=== PATIENT | female | born 1955 | race Hispanic/Latino ===

== ENCOUNTER 2019-09-09 11:47 | Inpatient (IN) | payer OTHER, MEDICARE ==
[~2019-09-09] VITALS: Ht 152.4 cm; Wt 88.3 kg
[~2019-09-09 11:47] MED LIST: ATOR10TA69 PO; CEPH500B PO; LEVO50TA11 PO; LOSA1TAB37 PO; NAPR-1023 PO; OMEGA 3 PO; PANT40TA54 PO; TYL3 PO; VITAMIN B PO; VITAMIN B12 PO
[2019-09-09] MEDS ORDERED: ONDANSETRON HCL 4 MG/2 ML VIAL ONE ×2 (12:30→16:24)
[2019-09-09] MEDS ORDERED: ACETAMINOPHEN EXTRA STRENGTH 500 MG TABLET ONE (12:31)
[2019-09-09 12:36] LABS: BASOPHILS % (AUTO) 0.2 % (0.0-5.0); HEMATOCRIT 44.3 % (36-48); LYMPHOCYTES % (AUTO) 21.3 % (21.0-51.0); MEAN CORPUSCULAR HEMOGLOBIN 29.8 pg (27.0-33.0); MEAN CORPUSCULAR HGB CONC 34.5 g/dL (32.0-36.0); MEAN CORPUSCULAR VOLUME 86.4 fL (79-99); PLATELET COUNT (AUTO) 178 K/uL (130-400); RED BLOOD CELL COUNT(AUTO) 5.13 MIL/uL (4.00-5.50); RED CELL DISTRIBUTION WIDTH 12.9 % (11.0-15.5); WHITE BLOOD COUNT (AUTO) 6.1 K/uL (4.8-10.8)
[2019-09-09 12:50] LABS: INR 1.07 (0.85-1.15); PARTIAL THROMBOPLASTIN TIME 32.2 SEC (26.3-35.5); PROTHROMBIN TIME 11.5 SEC (9.6-11.6)
[2019-09-09 12:52] LABS: CARBON DIOXIDE 29 mmol/L (21-32); CHLORIDE 98 mmol/L (101-111); CREATININE 1.1 mg/dL (0.5-1.5); GLOMERULAR FILTR. RATE CALC 53 mL/min (>60); GLUCOSE,RANDOM 121 mg/dL (70-105); POTASSIUM 3.6 mmol/L (3.5-5.1); SODIUM SERUM 134 mmol/L (136-145); UREA NITROGEN, BLOOD 18 mg/dL (7-18)
[2019-09-09 13:01] LABS: ALANINE AMINOTRANSFERASE 50 U/L (12-78); ALBUMIN 3.3 g/dL (3.5-5.0); ASPARTATE AMINOTRANSFERASE 59 U/L (10-37); BILIRUBIN,TOTAL 0.5 mg/dL (0.2-1.0); CREATINE KINASE, TOTAL 113 U/L (21-232); MYOGLOBIN 80 ng/mL (10-92); TOTAL PROTEIN, SERUM 7.8 g/dL (6.0-8.3); TROPONIN I < 0.04 ng/mL (0.00-0.06)
[2019-09-09 14:55] LABS: APPEARANCE,URINE SL CLOUDY (CLEAR); BILIRUBIN,URINE SMALL (NEGATIVE); COLOR,URINE YELLOW (YELLOW); GLUCOSE, URINE (UA) NEGATIVE (NEGATIVE); KETONES,URINE 5 mg/dL (NEGATIVE); LEUKOCYTE ESTERASE ,URINE SMALL (NEGATIVE); NITRATE,URINE NEGATIVE (NEGATIVE); OCCULT BLOOD,URINE TRACE-INTACT (NEGATIVE); PROTEIN,URINE 100 mg/dL (NEGATIVE); UROBILINOGEN,URINE >=8.0 mg/dL (0.2-1.0)
[2019-09-09 15:11] LABS: BACTERIA,URINE Few /HPF (None Seen); MUCUS,URINE Moderate LPF (None Seen); SQUAMOUS EPITHELIAL CELL,UR Moderate /HPF (0-2)
[2019-09-09 15:55] LABS: ABG BASE EXCESS 1.2 mmol/L (-2.0-3.0); ABG HCO3 24.3 mmol/L (21.0-28.0); ABG OXYGEN SATURATION 92.7 % (95.0-99.0); ABG PCO2 34 mmHg (32-45)
[2019-09-09] MEDS: FUROSEMIDE 10 MG/ML 2ML VIAL IV SCH (18:15)
[2019-09-09] MEDS ORDERED: LIDOCAINE HCL-MPF 1% 2ML VIAL IV PRN ×2 (18:15)
[2019-09-09] MEDS: DEXAMETHASONE SOD PHOSPHATE 4 MG/ML 1ML VIAL IVP SCH (18:15)
[2019-09-09] MEDS ORDERED: FUROSEMIDE 10 MG/ML 2ML VIAL ONE (18:25)
[2019-09-09] MEDS ORDERED: DEXAMETHASONE SOD PHOSPHATE 10MG/ML 1ML VIAL ONE (18:25)
[2019-09-09 20:03] LABS: ABG BASE EXCESS 2.5 mmol/L (-2.0-3.0); ABG HCO3 26.2 mmol/L (21.0-28.0); ABG OXYGEN SATURATION 91.9 % (95.0-99.0); ABG PCO2 38 mmHg (32-45)
[2019-09-09] MEDS: ENOXAPARIN SODIUM 60 MG/0.6 ML SQ SCH (21:00)
[2019-09-09] MEDS: ATORVASTATIN CALCIUM 10 MG TABLET PO SCH (21:00)
[2019-09-09] MEDS ORDERED: ATORVASTATIN CALCIUM 10 MG TABLET ONE (21:31)
[2019-09-09] MEDS ORDERED: ENOXAPARIN SODIUM 40 MG/0.4 ML SYRINGE SQ ONE (21:32)
[2019-09-10 05:16] LABS: ABG HCO3 25.9 mmol/L (21.0-28.0); ABG OXYGEN SATURATION 94.2 % (95.0-99.0); ABG PCO2 38 mmHg (32-45)
[2019-09-10] MEDS ORDERED: FUROSEMIDE 10 MG/ML 2ML VIAL ONE ×3 (06:14→22:55)
[2019-09-10] MEDS: FUROSEMIDE 10 MG/ML 2ML VIAL IV SCH ×2 (06:15→18:15)
[2019-09-10] MEDS: LEVOTHYROXINE 50 MCG TABLET PO SCH (06:30)
[2019-09-10 06:42] LABS: HEMATOCRIT 41.8 % (36-48); MEAN CORPUSCULAR VOLUME 85.5 fL (79-99); RED BLOOD CELL COUNT(AUTO) 4.89 MIL/uL (4.00-5.50); WHITE BLOOD COUNT (AUTO) 5.2 K/uL (4.8-10.8)
[2019-09-10 06:54] LABS: INR 1.08 (0.85-1.15); PARTIAL THROMBOPLASTIN TIME 34.1 SEC (26.3-35.5); PROTHROMBIN TIME 11.6 SEC (9.6-11.6)
[2019-09-10 07:28] LABS: CREATININE 0.9 mg/dL (0.5-1.5); CRP QUANTITATIVE 174.8 mg/L (0.00-9.0); PHOSPHORUS 3.2 mg/dL (2.5-4.9); POTASSIUM 3.5 mmol/L (3.5-5.1); THYROID STIMULATING HORMONE 0.36 uIU/mL (0.36-3.74)
[2019-09-10] MEDS ORDERED: ENOXAPARIN SODIUM 60 MG/0.6 ML SQ ONE ×2 (08:25→22:54)
[2019-09-10] MEDS ORDERED: PANTOPRAZOLE SODIUM 40 MG TABLET.DR ONE (08:26)
[2019-09-10] MEDS ORDERED: LEVOTHYROXINE 100 MCG TABLET ONE (08:26)
[2019-09-10] MEDS ORDERED: LOSARTAN 50 MG TABLET ONE (08:27)
[2019-09-10] MEDS ORDERED: ONDANSETRON HCL 4 MG/2 ML VIAL ONE (08:28)
[2019-09-10] MEDS: LOSARTAN/HYDROCHLOROTHIAZIDE 50-12.5MG TABLET PO SCH (09:00)
[2019-09-10] MEDS: ENOXAPARIN SODIUM 60 MG/0.6 ML SQ SCH ×2 (09:00→21:00)
[2019-09-10] MEDS: PANTOPRAZOLE SODIUM 40 MG TABLET.DR PO SCH (09:00)
[2019-09-10] MEDS ORDERED: PROMETHAZINE HCL 25 MG/ML 1ML AMPULE IM PRN (14:15)
--- NOTE | 2019-09-10 14:28 | NUR ---
SON STATES PATIENT HAD COVID TEST DONE AT [facility] LAST SUNDAY BUT HAS NOT BEEN GIVEN THE RESULT YET. NOTIFIED OUR INFECTION CONTROL NURSE KIERA VIA EMAIL TO SEE IF SHE CAN GET THAT RESULT. NOTED THAT ANOTHER COVID TEST WAS ORDERED/.DONE TODAY
[2019-09-10] MEDS: DEXAMETHASONE SOD PHOSPHATE 4 MG/ML 1ML VIAL IVP SCH (18:15)
[2019-09-10] MEDS ORDERED: ACETAMINOPHEN EXTRA STRENGTH 500 MG TABLET ONE (20:57)
[2019-09-10] MEDS: ATORVASTATIN CALCIUM 10 MG TABLET PO SCH (21:00)
[2019-09-10] MEDS ORDERED: ATORVASTATIN CALCIUM 10 MG TABLET ONE (22:55)
[2019-09-11 04:46] LABS: BASOPHILS % (AUTO) 0.1 % (0.0-5.0); HEMATOCRIT 42.2 % (36-48); LYMPHOCYTES % (AUTO) 13.3 % (21.0-51.0); MEAN CORPUSCULAR HEMOGLOBIN 29.6 pg (27.0-33.0); MEAN CORPUSCULAR HGB CONC 34.6 g/dL (32.0-36.0); MEAN CORPUSCULAR VOLUME 85.4 fL (79-99); MONOCYTES % (AUTO) 2.6 % (3.0-13.0); NEUTROPHILS % (AUTO) 83.6 % (40.0-77.0); PLATELET COUNT (AUTO) 231 K/uL (130-400); RED BLOOD CELL COUNT(AUTO) 4.94 MIL/uL (4.00-5.50); RED CELL DISTRIBUTION WIDTH 13.1 % (11.0-15.5); WHITE BLOOD COUNT (AUTO) 10.5 K/uL (4.8-10.8)
[2019-09-11 05:03] LABS: CREATININE 1.2 mg/dL (0.5-1.5); POTASSIUM 3.5 mmol/L (3.5-5.1)
[2019-09-11] MEDS: FUROSEMIDE 10 MG/ML 2ML VIAL IV SCH ×2 (06:15→18:15)
[2019-09-11] MEDS: LEVOTHYROXINE 50 MCG TABLET PO SCH (06:30)
[2019-09-11] MEDS ORDERED: ENOXAPARIN SODIUM 60 MG/0.6 ML SQ ONE (07:24)
[2019-09-11] MEDS ORDERED: FUROSEMIDE 10 MG/ML 2ML VIAL ONE (07:24)
[2019-09-11] MEDS ORDERED: PANTOPRAZOLE SODIUM 40 MG TABLET.DR ONE (07:57)
--- NOTE | 2019-09-11 08:42 | NUR ---
DCP: HOME SW spoke to pt's son Cal Kaur [phone]. Per son, pt lives at home at, is independent of all ADLs, no DME or in home care services. PCP is Dr Yessenia Howe and she uses [facility] for rx meds. Plan is for pt to return home at co Addendum: 09/11/19 at 0844 by ARIEL BELL Amended: Links added.
[2019-09-11] MEDS: LOSARTAN/HYDROCHLOROTHIAZIDE 50-12.5MG TABLET PO SCH (09:00)
[2019-09-11] MEDS: ENOXAPARIN SODIUM 60 MG/0.6 ML SQ SCH ×2 (09:00→21:00)
[2019-09-11] MEDS: PANTOPRAZOLE SODIUM 40 MG TABLET.DR PO SCH (09:00)
--- NOTE | 2019-09-11 10:36 | NUR ---
FOLLOWING UP ON COVID TEST CALL TO [facility], NO ANSWER --LEFT MESSAGE FOR CALL BACK., REQUESTING INFECTION CONTROL DEPARTMENT TO GET COVID RESULT FROM [facility] IF POSSIBLE,
--- NOTE | 2019-09-11 10:40 | NUR ---
FOLLOW UP ON OXYGEN SAT CALLED ER AND MADE REQUEST FOR ROOM AIR O2 SAT. CURRENTLY PT IS 93% ON 3 LITERS STATES THEY WILL HAVE TECH CHECK ROOM AIR SATS AND RECORD
[2019-09-11] MEDS ORDERED: ACETAMINOPHEN 325 MG TAB ONE ×2 (11:11→21:15)
[2019-09-11] MEDS: AZITHROMYCIN 500MG+NS 250ML 250 ML IV SCH (15:45)
[2019-09-11] MEDS: DEXAMETHASONE SOD PHOSPHATE 4 MG/ML 1ML VIAL IVP SCH (18:15)
[2019-09-11] MEDS ORDERED: ONDANSETRON HCL 4 MG/2 ML VIAL ONE (19:53)
[2019-09-11] MEDS: ATORVASTATIN CALCIUM 10 MG TABLET PO SCH (21:00)
[2019-09-12] VITALS (12 sets, daily range): BP systolic 122–157; BP diastolic 43–75
[2019-09-12] MEDS ORDERED: ONDANSETRON HCL 4 MG/2 ML VIAL ONE (01:10)
[2019-09-12 03:57] LABS: ABG HCO3 30.9 mmol/L (21.0-28.0); ABG OXYGEN SATURATION 88.9 % (95.0-99.0); ABG PCO2 41 mmHg (32-45)
[2019-09-12] MEDS ORDERED: AZITHROMYCIN 500MG+NS 250ML 250 ML IV ONE (04:37)
[2019-09-12 05:03] LABS: BASOPHILS % (AUTO) 0.1 % (0.0-5.0); HEMATOCRIT 43.2 % (36-48); LYMPHOCYTES % (AUTO) 11.5 % (21.0-51.0); MEAN CORPUSCULAR HEMOGLOBIN 29.7 pg (27.0-33.0); MEAN CORPUSCULAR HGB CONC 34.5 g/dL (32.0-36.0); MEAN CORPUSCULAR VOLUME 86.1 fL (79-99); MONOCYTES % (AUTO) 2.2 % (3.0-13.0); NEUTROPHILS % (AUTO) 85.6 % (40.0-77.0); PLATELET COUNT (AUTO) 272 K/uL (130-400); RED BLOOD CELL COUNT(AUTO) 5.02 MIL/uL (4.00-5.50); RED CELL DISTRIBUTION WIDTH 13.2 % (11.0-15.5); WHITE BLOOD COUNT (AUTO) 11.6 K/uL (4.8-10.8)
[2019-09-12 05:11] LABS: POTASSIUM 3.1 mmol/L (3.5-5.1)
[2019-09-12] MEDS: FUROSEMIDE 10 MG/ML 2ML VIAL IV SCH ×3 (06:51→21:34)
[2019-09-12] MEDS: LEVOTHYROXINE 50 MCG TABLET PO SCH (06:51)
--- NOTE | 2019-09-12 07:23 | NUR ---
BEDSIDE REPORT GIVEN TO MRAIELENA PENN; VSS; NO S/S DISTRESS NOTED; RELINQUISHED PT CARE AT THIS TIME
[2019-09-12] MEDS: LOSARTAN/HYDROCHLOROTHIAZIDE 50-12.5MG TABLET PO SCH (08:26)
[2019-09-12] MEDS: PANTOPRAZOLE SODIUM 40 MG TABLET.DR PO SCH (08:26)
[2019-09-12] MEDS: ENOXAPARIN SODIUM 60 MG/0.6 ML SQ SCH ×2 (08:27→21:35)
[2019-09-12] MEDS: POTASSIUM CHLORIDE 20 MEQ ERTAB PO PRN ×3 (08:27→14:18)
--- NOTE | 2019-09-12 09:00 | NUR ---
PATIENT'S SON ROYER CALLED FLOOR FOR UPDATES. PER SON, [facility] HAS NOT CALLED BACK WITH COVID-19 RESULTS. TEST WAS DONE IN [place].
--- NOTE | 2019-09-12 10:00 | NUR ---
PATIENT CALLED FOR HELP GETTING TO BED FROM RESTROOM. SHE AMBULATED TO RESTROOM WITHOUT O2. SHE C/O SHORTNESS OF BREATH. O2 SAT AT 80% ON ROOM AIR. ASSISTED PATIENT BACK TO BED. NON-REBREATHER APPLIED. SETTINGS AT 15L, 100% FIO2. ENCOURAGED DEEP BREATHING AND RELAXATION. HOB ELEVATED. AFTER ABOUT 10 MINUTES OF COAXING, PATIENT'S O2 SAT ONLY CAME UP TO 89%. I INFORMED RT AND DR. HOOVER AND WAS ABLE TO GET ORDER TO INITIATE HIGH FLOW O2. NEREIDA RT STARTED HIGH FLOW AT 25L 100% WITH NRB 12L 100%. PATIENT'S O2 SAT RECHECK WAS AT 94%. INFORMED PATIENT ONCE AGAIN THAT SHE CANNOT GET OUT OF BED WITHOUT O2 ESPECIALLY WHEN SHE IS DYSPNEIC. BED ALARM ON. CALL LIGHT WITHIN REACH. PATIENT VERBALIZED UNDERSTANDING.
--- NOTE | 2019-09-12 11:30 | NUR ---
PT SIGNED CONSENT FOR BLOOD TRANSFUSION AND CONVALESCENT PLASMA ADMINISTRATION. FILED IN CHART. PENDING CONVALESCENT PLASMA FROM BLOOD BANK.
[2019-09-12] MEDS ORDERED: CEFTRIAXONE SODIUM 1 GM IVP SCH (14:15)
[2019-09-12] MEDS: AZITHROMYCIN 500MG+NS 250ML 250 ML IV SCH (14:23)
[2019-09-12] MEDS: DEXAMETHASONE SOD PHOSPHATE 4 MG/ML 1ML VIAL IVP SCH (18:17)
--- NOTE | 2019-09-12 20:08 | NUR ---
ADMISSION 1899 RECEIVED REPORT FROM ISAMAR Jorge RN 192 PT TRANSFER FROM 413 ADMIT RM 210 ARRIVED ON NRM 15L 100% PT CONNECTED TO BEDSIDE MONITOR SPO2 85% RT CONNECTED PT TO HIGH FLOW NC 55L 90% TOGETHER WITH NRB. PT TURNED TO LEFT SIDE HOB ELEVATE AT REST SPO2 91-92% PT TACHYPNEIC STATES 'SOB BUT NOT THAT BAD' WILL CONTINUE TO MONITOR PT.
[2019-09-12] MEDS: ATORVASTATIN CALCIUM 10 MG TABLET PO SCH (21:36)
[2019-09-13] VITALS (19 sets, daily range): BP systolic 97–144; BP diastolic 46–69
[2019-09-13] MEDS: FUROSEMIDE 10 MG/ML 2ML VIAL IV SCH ×4 (03:12→20:44)
[2019-09-13 03:47] LABS: ABG BASE EXCESS 2.4 mmol/L (-2.0-3.0); ABG HCO3 26.2 mmol/L (21.0-28.0); ABG OXYGEN SATURATION 85.5 % (95.0-99.0); ABG PCO2 38 mmHg (32-45)
[2019-09-13] MEDS: LEVOTHYROXINE 50 MCG TABLET PO SCH (06:15)
[2019-09-13 06:50] LABS: BASOPHILS % (AUTO) 0.1 % (0.0-5.0); HEMATOCRIT 42.3 % (36-48); LYMPHOCYTES % (AUTO) 9.7 % (21.0-51.0); MEAN CORPUSCULAR HGB CONC 33.6 g/dL (32.0-36.0); MEAN CORPUSCULAR VOLUME 86.3 fL (79-99); MONOCYTES % (AUTO) 2.7 % (3.0-13.0); PLATELET COUNT (AUTO) 340 K/uL (130-400); RED CELL DISTRIBUTION WIDTH 13.5 % (11.0-15.5)
[2019-09-13 07:21] LABS: ALBUMIN 2.7 g/dL (3.5-5.0); BILIRUBIN,TOTAL 0.6 mg/dL (0.2-1.0); CREATININE 1.1 mg/dL (0.5-1.5); POTASSIUM 3.3 mmol/L (3.5-5.1); TOTAL PROTEIN, SERUM 7.8 g/dL (6.0-8.3)
[2019-09-13] MEDS: PANTOPRAZOLE SODIUM 40 MG TABLET.DR PO SCH (08:12)
[2019-09-13] MEDS: ENOXAPARIN SODIUM 60 MG/0.6 ML SQ SCH (08:15)
[2019-09-13] MEDS: POTASSIUM CHLORIDE 20MEQ/100ML 100 ML IV PRN ×2 (08:26→13:35)
[2019-09-13] MEDS ORDERED: SODIUM CHLORIDE 0.9% 100 ML IV ONE ×2 (08:53→16:59)
[2019-09-13] MEDS ORDERED: REMDESIVIR (INVESTIGATIONAL) 200 MG/250 ML NS IV ONE (17:00)
[2019-09-13] MEDS: DEXAMETHASONE SOD PHOSPHATE 4 MG/ML 1ML VIAL IVP SCH (18:14)
[2019-09-13] MEDS: ATORVASTATIN CALCIUM 10 MG TABLET PO SCH (20:42)
[2019-09-14] VITALS (12 sets, daily range): BP systolic 122–162; BP diastolic 52–97
[2019-09-14] MEDS: FUROSEMIDE 10 MG/ML 2ML VIAL IV SCH ×2 (01:54→08:47)
[2019-09-14] MEDS: LEVOTHYROXINE 50 MCG TABLET PO SCH (06:20)
--- NOTE | 2019-09-14 07:11 | NUR ---
BEDSIDE REPORT GIVEN TO MARIELENA GALLEGO; VSS; NO S/S DISTRESS NOTED; RELINQUISHED PT CARE AT THIS TIME
[2019-09-14 07:15] LABS: HEMATOCRIT 42.5 % (36-48); LYMPHOCYTES % (AUTO) 9.2 % (21.0-51.0); MEAN CORPUSCULAR HEMOGLOBIN 29.4 pg (27.0-33.0); MEAN CORPUSCULAR HGB CONC 34.1 g/dL (32.0-36.0); MONOCYTES % (AUTO) 5.2 % (3.0-13.0); NEUTROPHILS % (AUTO) 85.2 % (40.0-77.0); PLATELET COUNT (AUTO) 388 K/uL (130-400); RED BLOOD CELL COUNT(AUTO) 4.94 MIL/uL (4.00-5.50); RED CELL DISTRIBUTION WIDTH 13.1 % (11.0-15.5); WHITE BLOOD COUNT (AUTO) 8.3 K/uL (4.8-10.8)
--- NOTE | 2019-09-14 07:30 | NUR ---
pt received resting comfortably high flow nasal cannula @ 60% and nrb @ 15lpm alert and oriented x 4 resp unlabored at rest skin appropriate in color, warm, dry moving all extremities freely speaking in full sentences with clear speech updated on POC
[2019-09-14 08:03] LABS: CREATININE 1.1 mg/dL (0.5-1.5); MAGNESIUM 2.4 mg/dL (1.80-2.40); PHOSPHORUS 3.5 mg/dL (2.5-4.9); POTASSIUM 3.3 mmol/L (3.5-5.1)
[2019-09-14] MEDS ORDERED: SODIUM CHLORIDE 0.9% 500ML 500 ML IV ONE (08:37)
[2019-09-14] MEDS: POTASSIUM CHLORIDE 20MEQ/100ML 100 ML IV PRN (08:44)
[2019-09-14] MEDS: ENOXAPARIN SODIUM 40 MG/0.4 ML SYRINGE SQ SCH (08:46)
[2019-09-14] MEDS: DEXAMETHASONE SOD PHOSPHATE 4 MG/ML 1ML VIAL IVP SCH (08:48)
[2019-09-14] MEDS ORDERED: PANTOPRAZOLE 40 MG/VIAL IVP SCH (09:00)
[2019-09-14] MEDS ORDERED: SODIUM CHLORIDE 0.9% 1000ML 1,000 ML IV ONE (11:11)
[2019-09-14] MEDS ORDERED: COMPOUND IV REFRIGERATED 1 EACH IVSOLN MISC PRN (13:00)
[2019-09-14] MEDS ORDERED: REMDESIVIR (INVESTIGATIONAL) 100 MG in SODIUM CHLORIDE 0.9% 250 ML IV SCH (13:15)
[2019-09-14] MEDS: REMDESIVIR (INVESTIGATIONAL) 100 MG/250ML NS IV SCH (17:11)
--- NOTE | 2019-09-14 17:14 | NUR ---
Report endorsed to MARIELENA Magana
--- NOTE | 2019-09-14 17:15 | NUR ---
RECEIVED PATIENT ON BED, STABLE ON HIGH FLOW NC 60L, 100% WITH NON-REBREATHER 100%. ORIENTED PATIENT TO ROOM. NO SOB COMPLAINTS AT THIS TIME. CALL LIGHT WITHIN REACH. INSTRUCTED TO CALL FOR ASSISTANCE. PATIENT VERBALIZED UNDERSTANDING. PT REQUESTED FOR RIGHT WRIST IV TO BE DISCONTINUED. IV SITE IS A BIT SWOLLEN AND TENDER. REMOVED PIV. TIP WAS INTACT. REMDESIVIR ADMINISTERED VIA RIGHT AC IV.
--- NOTE | 2019-09-14 18:03 | NUR ---
Informed patient's son Cal Kaur about the room transfer. Updated family member on patient's condition.
[2019-09-14] MEDS: ATORVASTATIN CALCIUM 10 MG TABLET PO SCH (20:37)
[2019-09-15 03:05] VITALS: BP 144/70
[2019-09-15] MEDS: LEVOTHYROXINE 50 MCG TABLET PO SCH (06:24)
--- NOTE | 2019-09-15 07:50 | NUR ---
RESPIRATORY STATUS SOB PRESENT. SOB O ON EXERTION. HFNC & NRM @ 60L, 100 % FIO2. SATS 80-82% RT NOTIFIED. O2 ADJUSTED BY RT TO 70L. SATS 90-92 %.
[2019-09-15 08:00] VITALS: BP 137/61
[2019-09-15] MEDS ORDERED: FUROSEMIDE 10 MG/ML 2ML VIAL IV SCH (08:00)
--- NOTE | 2019-09-15 08:00 | NUR ---
AM ASSESSMENT PT LAYING IN BED, HOB ELEVATED 30 DEGREES. A/O X3. SOB PRESENT. SOB O ON EXERTION. HFNC & NRM @ 60L, 100 % FIO2. SATS 80-82% RT NOTIFIED. O2 ADJUSTED BY RT TO 70L. SATS 90-92 %. TELE: SR. DENIES N/V AND/OR DIARRHEA. CONTINENT BOWEL & BLADDER. BEDREST. INSTRUCTED TO CALL FOR ASSISTANCE. CALL LISA W/IN REACH.
[2019-09-15] MEDS: DEXAMETHASONE SOD PHOSPHATE 4 MG/ML 1ML VIAL IVP SCH (08:04)
[2019-09-15] MEDS: ENOXAPARIN SODIUM 40 MG/0.4 ML SYRINGE SQ SCH (08:16)
[2019-09-15] MEDS: PANTOPRAZOLE SODIUM 40 MG TABLET.DR PO SCH (09:08)
[2019-09-15] MEDS: ZINC SULFATE 220 CAPSULE PO SCH (09:08)
[2019-09-15] MEDS: MULTIVITAMIN WITH MINERALS TABLET PO SCH (09:08)
[2019-09-15] MEDS: ASCORBIC ACID 500 MG TAB PO SCH (09:08)
[2019-09-15 09:52] LABS: BASOPHILS % (AUTO) 0.1 % (0.0-5.0); HEMATOCRIT 42.9 % (36-48); LYMPHOCYTES % (AUTO) 5.5 % (21.0-51.0); MEAN CORPUSCULAR HEMOGLOBIN 29.4 pg (27.0-33.0); MEAN CORPUSCULAR HGB CONC 34.5 g/dL (32.0-36.0); MEAN CORPUSCULAR VOLUME 85.1 fL (79-99); MONOCYTES % (AUTO) 4.1 % (3.0-13.0); NEUTROPHILS % (AUTO) 89.7 % (40.0-77.0); PLATELET COUNT (AUTO) 490 K/uL (130-400); RED BLOOD CELL COUNT(AUTO) 5.04 MIL/uL (4.00-5.50); WHITE BLOOD COUNT (AUTO) 14.3 K/uL (4.8-10.8)
[2019-09-15] MEDS ORDERED: ALBUTEROL SULFATE/IPRATROPIUM 103/18 MCG/PUFF 14.7 GM INHR IH PRN (10:00)
[2019-09-15 10:09] LABS: MAGNESIUM 2.3 mg/dL (1.80-2.40); POTASSIUM 3.4 mmol/L (3.5-5.1)
[2019-09-15 11:30] VITALS: BP 122/41
[2019-09-15] MEDS: POTASSIUM CHLORIDE 10% ELIXIR 20 MEQ/15 ML UDCUP PO PRN ×2 (11:58→14:00)
[2019-09-15 15:40] VITALS: BP 120/40
[2019-09-15] MEDS: REMDESIVIR (INVESTIGATIONAL) 100 MG/250ML NS IV SCH (16:15)
[2019-09-15] MEDS: FUROSEMIDE 10 MG/ML 2ML VIAL IV SCH (17:25)
[2019-09-15] MEDS ORDERED: REMDESIVIR (INVESTIGATIONAL) 200 MG in SODIUM CHLORIDE 0.9% 250 ML IV ONE (17:45)
[2019-09-15] MEDS ORDERED: ONDANSETRON HCL 4 MG/2 ML VIAL IVP PRN (19:15)
[2019-09-15 19:45] VITALS: BP 117/57
[2019-09-15] MEDS: ATORVASTATIN CALCIUM 10 MG TABLET PO SCH (20:50)
[2019-09-15] MEDS ORDERED: REMDESIVIR (INVESTIGATIONAL) 200 MG/250 ML NS IV ONE (21:00)
[2019-09-15 23:02] VITALS: BP 125/70
[2019-09-16 03:02] VITALS: BP 115/63
[2019-09-16 04:57] LABS: BASOPHILS % (AUTO) 0.2 % (0.0-5.0); EOSINOPHILS % (AUTO) 0.1 % (0.0-8.0); HEMATOCRIT 42.6 % (36-48); LYMPHOCYTES % (AUTO) 9.6 % (21.0-51.0); MEAN CORPUSCULAR HEMOGLOBIN 29.3 pg (27.0-33.0); MEAN CORPUSCULAR HGB CONC 34.3 g/dL (32.0-36.0); MEAN CORPUSCULAR VOLUME 85.5 fL (79-99); MONOCYTES % (AUTO) 3.6 % (3.0-13.0); NEUTROPHILS % (AUTO) 85.5 % (40.0-77.0); PLATELET COUNT (AUTO) 416 K/uL (130-400); RED BLOOD CELL COUNT(AUTO) 4.98 MIL/uL (4.00-5.50); RED CELL DISTRIBUTION WIDTH 12.8 % (11.0-15.5); WHITE BLOOD COUNT (AUTO) 11.9 K/uL (4.8-10.8)
[2019-09-16 05:04] LABS: ABG BASE EXCESS 4.4 mmol/L (-2.0-3.0); ABG HCO3 27.2 mmol/L (21.0-28.0); ABG OXYGEN SATURATION 87.4 % (95.0-99.0); ABG PCO2 35 mmHg (32-45)
[2019-09-16 05:06] LABS: CREATININE 0.8 mg/dL (0.5-1.5); POTASSIUM 3.4 mmol/L (3.5-5.1)
[2019-09-16] MEDS: FUROSEMIDE 10 MG/ML 2ML VIAL IV SCH ×2 (05:33→16:05)
[2019-09-16] MEDS: LEVOTHYROXINE 50 MCG TABLET PO SCH (06:12)
[2019-09-16 08:00] VITALS: BP 115/59
[2019-09-16] MEDS: ENOXAPARIN SODIUM 40 MG/0.4 ML SYRINGE SQ SCH (08:27)
[2019-09-16] MEDS: MULTIVITAMIN WITH MINERALS TABLET PO SCH (08:27)
[2019-09-16] MEDS: ASCORBIC ACID 500 MG TAB PO SCH (08:27)
[2019-09-16] MEDS: PANTOPRAZOLE SODIUM 40 MG TABLET.DR PO SCH (08:27)
[2019-09-16] MEDS: ZINC SULFATE 220 CAPSULE PO SCH (08:29)
[2019-09-16] MEDS: DEXAMETHASONE SOD PHOSPHATE 4 MG/ML 1ML VIAL IVP SCH (08:29)
[2019-09-16] MEDS: POTASSIUM CHLORIDE 10% ELIXIR 20 MEQ/15 ML UDCUP PO PRN ×2 (09:18→18:54)
[2019-09-16 11:30] VITALS: BP 121/60
[2019-09-16 15:30] VITALS: BP 127/44
[2019-09-16] MEDS: REMDESIVIR (INVESTIGATIONAL) 100 MG/250ML NS IV SCH (16:05)
[2019-09-16] MEDS ORDERED: REMDESIVIR (INVESTIGATIONAL) 100 MG in SODIUM CHLORIDE 0.9% 250 ML IV SCH (17:45)
[2019-09-16 19:21] VITALS: BP 127/68
[2019-09-16 19:28] VITALS: BP 157/74
[2019-09-16] MEDS ORDERED: REMDESIVIR (INVESTIGATIONAL) 100 MG/250ML NS IV SCH (21:00)
[2019-09-16] MEDS: ATORVASTATIN CALCIUM 10 MG TABLET PO SCH (21:26)
[2019-09-17 03:16] VITALS: BP 122/60
[2019-09-17 03:53] LABS: ABG BASE EXCESS 6.1 mmol/L (-2.0-3.0); ABG HCO3 29.4 mmol/L (21.0-28.0); ABG PCO2 38 mmHg (32-45)
[2019-09-17 05:26] LABS: BASOPHILS % (AUTO) 0.1 % (0.0-5.0); EOSINOPHILS % (AUTO) 0.2 % (0.0-8.0); LYMPHOCYTES % (AUTO) 7.9 % (21.0-51.0); MEAN CORPUSCULAR HEMOGLOBIN 28.7 pg (27.0-33.0); MEAN CORPUSCULAR HGB CONC 33.6 g/dL (32.0-36.0); MEAN CORPUSCULAR VOLUME 85.5 fL (79-99); MONOCYTES % (AUTO) 2.6 % (3.0-13.0); NEUTROPHILS % (AUTO) 88.3 % (40.0-77.0); PLATELET COUNT (AUTO) 393 K/uL (130-400); RED BLOOD CELL COUNT(AUTO) 4.91 MIL/uL (4.00-5.50); RED CELL DISTRIBUTION WIDTH 12.8 % (11.0-15.5); WHITE BLOOD COUNT (AUTO) 15.3 K/uL (4.8-10.8)
[2019-09-17 05:42] LABS: ALBUMIN 2.4 g/dL (3.5-5.0); BILIRUBIN,TOTAL 0.6 mg/dL (0.2-1.0); CREATININE 0.9 mg/dL (0.5-1.5); POTASSIUM 3.3 mmol/L (3.5-5.1)
[2019-09-17] MEDS: FUROSEMIDE 10 MG/ML 2ML VIAL IV SCH ×2 (05:44→17:08)
[2019-09-17] MEDS: LEVOTHYROXINE 50 MCG TABLET PO SCH (05:44)
[2019-09-17 08:00] VITALS: BP 113/59
[2019-09-17] MEDS: PANTOPRAZOLE SODIUM 40 MG TABLET.DR PO SCH (08:48)
[2019-09-17] MEDS: ZINC SULFATE 220 CAPSULE PO SCH (08:48)
[2019-09-17] MEDS: MULTIVITAMIN WITH MINERALS TABLET PO SCH (08:48)
[2019-09-17] MEDS: ENOXAPARIN SODIUM 40 MG/0.4 ML SYRINGE SQ SCH (08:49)
[2019-09-17] MEDS: DEXAMETHASONE SOD PHOSPHATE 4 MG/ML 1ML VIAL IVP SCH (08:49)
[2019-09-17] MEDS: ASCORBIC ACID 500 MG TAB PO SCH (10:22)
[2019-09-17 12:00] VITALS: BP 111/67
--- NOTE | 2019-09-17 12:15 | NUR ---
RDSCREEN - LOS X 8 Pt positive for COVID-19. Pt with Heart Healthy Diet order in place. Attempt to call Pt, no answer. Unknown PO intake. Worsening SOB as per EMR. S/p Plasma Tx. Prone positioning as tolerated. WBC 15.3, K 3.3. Vitamin C, ZnSO4, MVI in place. Obesity Class II. Recommend protein supplementation d/t increased protein needs. Recommend 60mL ProMod BID RD to continue to monitor. Please notify as additional nutrition concerns arise. Thank you.
[2019-09-17 16:00] VITALS: BP 123/63
[2019-09-17 19:34] VITALS: BP 118/67
[2019-09-17] MEDS: ATORVASTATIN CALCIUM 10 MG TABLET PO SCH (20:23)
[2019-09-17 23:07] VITALS: BP 113/61
[2019-09-18 03:12] VITALS: BP 118/65
[2019-09-18 04:21] LABS: BASOPHILS % (AUTO) 0.2 % (0.0-5.0); EOSINOPHILS % (AUTO) 0.1 % (0.0-8.0); HEMATOCRIT 44.7 % (36-48); LYMPHOCYTES % (AUTO) 6.5 % (21.0-51.0); MEAN CORPUSCULAR HEMOGLOBIN 29.6 pg (27.0-33.0); MEAN CORPUSCULAR HGB CONC 34.7 g/dL (32.0-36.0); MEAN CORPUSCULAR VOLUME 85.5 fL (79-99); MONOCYTES % (AUTO) 2.5 % (3.0-13.0); PLATELET COUNT (AUTO) 424 K/uL (130-400); RED BLOOD CELL COUNT(AUTO) 5.23 MIL/uL (4.00-5.50); RED CELL DISTRIBUTION WIDTH 12.7 % (11.0-15.5); WHITE BLOOD COUNT (AUTO) 19.1 K/uL (4.8-10.8)
[2019-09-18 04:41] LABS: ALBUMIN 2.4 g/dL (3.5-5.0); BILIRUBIN,TOTAL 0.6 mg/dL (0.2-1.0); CREATININE 0.9 mg/dL (0.5-1.5); POTASSIUM 3.4 mmol/L (3.5-5.1); TOTAL PROTEIN, SERUM 7.3 g/dL (6.0-8.3)
[2019-09-18 05:09] LABS: ABG BASE EXCESS 4.2 mmol/L (-2.0-3.0); ABG HCO3 27.2 mmol/L (21.0-28.0); ABG OXYGEN SATURATION 83.2 % (95.0-99.0); ABG PCO2 36 mmHg (32-45)
[2019-09-18] MEDS: FUROSEMIDE 10 MG/ML 2ML VIAL IV SCH ×2 (05:32→17:55)
[2019-09-18] MEDS: LEVOTHYROXINE 50 MCG TABLET PO SCH (05:37)
[2019-09-18 08:00] VITALS: BP 117/65
[2019-09-18] MEDS: ENOXAPARIN SODIUM 40 MG/0.4 ML SYRINGE SQ SCH (10:26)
[2019-09-18] MEDS: ZINC SULFATE 220 CAPSULE PO SCH (10:27)
[2019-09-18] MEDS: MULTIVITAMIN WITH MINERALS TABLET PO SCH (10:27)
[2019-09-18] MEDS: POTASSIUM CHLORIDE 20 MEQ ERTAB PO PRN ×2 (10:27→11:25)
[2019-09-18] MEDS: PANTOPRAZOLE SODIUM 40 MG TABLET.DR PO SCH (10:27)
[2019-09-18] MEDS: ASCORBIC ACID 500 MG TAB PO SCH (10:27)
[2019-09-18] MEDS: DEXAMETHASONE SOD PHOSPHATE 4 MG/ML 1ML VIAL IVP SCH (10:28)
[2019-09-18] MEDS: ACETAMINOPHEN 325 MG TAB PO PRN (11:25)
[2019-09-18 11:52] VITALS: BP 127/79
[2019-09-18 16:00] VITALS: BP 141/59
[2019-09-18 20:20] VITALS: BP 134/72
[2019-09-18] MEDS: ATORVASTATIN CALCIUM 10 MG TABLET PO SCH (21:57)
[2019-09-19 00:24] VITALS: BP 119/57
[2019-09-19 04:24] VITALS: BP 111/78
[2019-09-19] MEDS: LEVOTHYROXINE 50 MCG TABLET PO SCH (05:14)
[2019-09-19] MEDS: FUROSEMIDE 10 MG/ML 2ML VIAL IV SCH ×2 (05:14→18:16)
[2019-09-19 07:33] LABS: BASOPHILS % (AUTO) 0.1 % (0.0-5.0); HEMATOCRIT 46.2 % (36-48); LYMPHOCYTES % (AUTO) 4.9 % (21.0-51.0); MEAN CORPUSCULAR HEMOGLOBIN 28.8 pg (27.0-33.0); MEAN CORPUSCULAR HGB CONC 34.2 g/dL (32.0-36.0); MEAN CORPUSCULAR VOLUME 84.3 fL (79-99); MONOCYTES % (AUTO) 2.9 % (3.0-13.0); NEUTROPHILS % (AUTO) 91.3 % (40.0-77.0); PLATELET COUNT (AUTO) 385 K/uL (130-400); RED BLOOD CELL COUNT(AUTO) 5.48 MIL/uL (4.00-5.50); RED CELL DISTRIBUTION WIDTH 12.7 % (11.0-15.5); WHITE BLOOD COUNT (AUTO) 22.5 K/uL (4.8-10.8)
[2019-09-19] MEDS: ZINC SULFATE 220 CAPSULE PO SCH (07:50)
[2019-09-19] MEDS: MULTIVITAMIN WITH MINERALS TABLET PO SCH (07:50)
[2019-09-19] MEDS: PANTOPRAZOLE SODIUM 40 MG TABLET.DR PO SCH (07:50)
[2019-09-19] MEDS: ASCORBIC ACID 500 MG TAB PO SCH (07:50)
[2019-09-19] MEDS: DEXAMETHASONE SOD PHOSPHATE 4 MG/ML 1ML VIAL IVP SCH (07:50)
[2019-09-19] MEDS: ENOXAPARIN SODIUM 40 MG/0.4 ML SYRINGE SQ SCH (07:51)
[2019-09-19 08:00] VITALS: BP 125/63
[2019-09-19] MEDS: GUAIFENESIN-CODEINE 5 ML SYRUP PO PRN (08:24)
[2019-09-19 09:38] LABS: ALBUMIN 2.4 g/dL (3.5-5.0); BILIRUBIN,TOTAL 0.6 mg/dL (0.2-1.0); CREATININE 0.9 mg/dL (0.5-1.5); POTASSIUM 3.7 mmol/L (3.5-5.1); TOTAL PROTEIN, SERUM 7.3 g/dL (6.0-8.3)
[2019-09-19 11:20] VITALS: BP 113/50
[2019-09-19 15:53] VITALS: BP 117/57
[2019-09-19] MEDS: POTASSIUM CHLORIDE 10% ELIXIR 20 MEQ/15 ML UDCUP PO PRN (18:19)
[2019-09-19] MEDS: ATORVASTATIN CALCIUM 10 MG TABLET PO SCH (20:37)
[2019-09-19 21:00] VITALS: BP 114/55
[2019-09-20 00:25] VITALS: BP 147/58
[2019-09-20 04:50] VITALS: BP 144/66
[2019-09-20 04:52] LABS: BASOPHILS % (AUTO) 0.1 % (0.0-5.0); HEMATOCRIT 43.6 % (36-48); LYMPHOCYTES % (AUTO) 4.9 % (21.0-51.0); MEAN CORPUSCULAR HEMOGLOBIN 28.9 pg (27.0-33.0); MEAN CORPUSCULAR HGB CONC 34.2 g/dL (32.0-36.0); MEAN CORPUSCULAR VOLUME 84.5 fL (79-99); MONOCYTES % (AUTO) 2.7 % (3.0-13.0); NEUTROPHILS % (AUTO) 91.5 % (40.0-77.0); PLATELET COUNT (AUTO) 427 K/uL (130-400); RED BLOOD CELL COUNT(AUTO) 5.16 MIL/uL (4.00-5.50); RED CELL DISTRIBUTION WIDTH 12.9 % (11.0-15.5); WHITE BLOOD COUNT (AUTO) 23.6 K/uL (4.8-10.8)
[2019-09-20 05:01] LABS: POTASSIUM 3.7 mmol/L (3.5-5.1)
[2019-09-20 05:09] LABS: ABG BASE EXCESS 6.6 mmol/L (-2.0-3.0); ABG HCO3 30.4 mmol/L (21.0-28.0); ABG OXYGEN SATURATION 94.1 % (95.0-99.0); ABG PCO2 41 mmHg (32-45)
[2019-09-20] MEDS: FUROSEMIDE 10 MG/ML 2ML VIAL IV SCH ×2 (05:36→17:05)
[2019-09-20] MEDS: LEVOTHYROXINE 50 MCG TABLET PO SCH (05:36)
[2019-09-20] MEDS: POTASSIUM CHLORIDE 20 MEQ ERTAB PO PRN (05:39)
[2019-09-20 08:00] VITALS: BP 107/53
[2019-09-20] MEDS: DEXAMETHASONE SOD PHOSPHATE 4 MG/ML 1ML VIAL IVP SCH (08:59)
[2019-09-20] MEDS: ASCORBIC ACID 500 MG TAB PO SCH (08:59)
[2019-09-20] MEDS: ENOXAPARIN SODIUM 40 MG/0.4 ML SYRINGE SQ SCH (08:59)
[2019-09-20] MEDS: MULTIVITAMIN WITH MINERALS TABLET PO SCH (08:59)
[2019-09-20] MEDS: PANTOPRAZOLE SODIUM 40 MG TABLET.DR PO SCH (08:59)
[2019-09-20] MEDS: ZINC SULFATE 220 CAPSULE PO SCH (08:59)
[2019-09-20 11:30] VITALS: BP 135/68
[2019-09-20 16:00] VITALS: BP 117/67
[2019-09-20 20:00] VITALS: BP 130/73
[2019-09-20] MEDS: ATORVASTATIN CALCIUM 10 MG TABLET PO SCH (21:21)
[2019-09-21] VITALS (7 sets, daily range): BP systolic 113–137; BP diastolic 72–81
[2019-09-21] MEDS: LEVOTHYROXINE 50 MCG TABLET PO SCH (05:22)
[2019-09-21] MEDS: FUROSEMIDE 10 MG/ML 2ML VIAL IV SCH ×2 (05:22→17:15)
[2019-09-21 05:37] LABS: BASOPHILS % (AUTO) 0.2 % (0.0-5.0); EOSINOPHILS % (AUTO) 0.1 % (0.0-8.0); HEMATOCRIT 43.6 % (36-48); MEAN CORPUSCULAR HEMOGLOBIN 28.9 pg (27.0-33.0); MEAN CORPUSCULAR HGB CONC 33.9 g/dL (32.0-36.0); MEAN CORPUSCULAR VOLUME 85.2 fL (79-99); MONOCYTES % (AUTO) 2.2 % (3.0-13.0); NEUTROPHILS % (AUTO) 91.6 % (40.0-77.0); PLATELET COUNT (AUTO) 369 K/uL (130-400); RED BLOOD CELL COUNT(AUTO) 5.12 MIL/uL (4.00-5.50); RED CELL DISTRIBUTION WIDTH 12.9 % (11.0-15.5); WHITE BLOOD COUNT (AUTO) 21.5 K/uL (4.8-10.8)
[2019-09-21] MEDS: DEXAMETHASONE SOD PHOSPHATE 4 MG/ML 1ML VIAL IVP SCH (08:49)
[2019-09-21] MEDS: MULTIVITAMIN WITH MINERALS TABLET PO SCH (08:49)
[2019-09-21] MEDS: ASCORBIC ACID 500 MG TAB PO SCH (08:49)
[2019-09-21] MEDS: ENOXAPARIN SODIUM 40 MG/0.4 ML SYRINGE SQ SCH (08:49)
[2019-09-21] MEDS: ZINC SULFATE 220 CAPSULE PO SCH (08:50)
[2019-09-21] MEDS: PANTOPRAZOLE SODIUM 40 MG TABLET.DR PO SCH (08:59)
[2019-09-21] MEDS: ATORVASTATIN CALCIUM 10 MG TABLET PO SCH (21:00)
[2019-09-22 03:18] VITALS: BP 122/80
[2019-09-22 03:44] LABS: ABG HCO3 33.7 mmol/L (21.0-28.0); ABG OXYGEN SATURATION 87.7 % (95.0-99.0); ABG PCO2 46 mmHg (32-45)
[2019-09-22 05:14] LABS: ALBUMIN 2.2 g/dL (3.5-5.0); BILIRUBIN,TOTAL 0.7 mg/dL (0.2-1.0); POTASSIUM 3.7 mmol/L (3.5-5.1); TOTAL PROTEIN, SERUM 7.1 g/dL (6.0-8.3)
[2019-09-22] MEDS: FUROSEMIDE 10 MG/ML 2ML VIAL IV SCH ×2 (05:46→16:39)
[2019-09-22] MEDS: LEVOTHYROXINE 50 MCG TABLET PO SCH (05:46)
[2019-09-22 08:31] VITALS: BP 140/71
[2019-09-22] MEDS: ASCORBIC ACID 500 MG TAB PO SCH (08:58)
[2019-09-22] MEDS: PANTOPRAZOLE SODIUM 40 MG TABLET.DR PO SCH (08:58)
[2019-09-22] MEDS: DEXAMETHASONE SOD PHOSPHATE 4 MG/ML 1ML VIAL IVP SCH (08:58)
[2019-09-22] MEDS: ENOXAPARIN SODIUM 40 MG/0.4 ML SYRINGE SQ SCH (08:59)
[2019-09-22] MEDS: ZINC SULFATE 220 CAPSULE PO SCH (08:59)
[2019-09-22] MEDS: MULTIVITAMIN WITH MINERALS TABLET PO SCH (08:59)
[2019-09-22 12:03] VITALS: BP 117/68
--- NOTE | 2019-09-22 14:39 | NUR ---
PHONE CALL Family updated.
[2019-09-22 16:18] VITALS: BP 119/69
[2019-09-22] MEDS: ATORVASTATIN CALCIUM 10 MG TABLET PO SCH (20:33)
[2019-09-22 20:36] VITALS: BP 115/55
[2019-09-22 23:56] VITALS: BP 103/47
[2019-09-23 04:21] VITALS: BP 148/71
[2019-09-23 04:32] LABS: BASOPHILS % (AUTO) 0.2 % (0.0-5.0); EOSINOPHILS % (AUTO) 0.4 % (0.0-8.0); HEMATOCRIT 44.5 % (36-48); LYMPHOCYTES % (AUTO) 4.6 % (21.0-51.0); MEAN CORPUSCULAR HEMOGLOBIN 29.5 pg (27.0-33.0); MEAN CORPUSCULAR HGB CONC 34.4 g/dL (32.0-36.0); MEAN CORPUSCULAR VOLUME 85.9 fL (79-99); MONOCYTES % (AUTO) 2.5 % (3.0-13.0); NEUTROPHILS % (AUTO) 91.5 % (40.0-77.0); PLATELET COUNT (AUTO) 384 K/uL (130-400); RED BLOOD CELL COUNT(AUTO) 5.18 MIL/uL (4.00-5.50); RED CELL DISTRIBUTION WIDTH 12.8 % (11.0-15.5); WHITE BLOOD COUNT (AUTO) 22.9 K/uL (4.8-10.8)
[2019-09-23 04:57] LABS: PLATELET MORPHOLOGY PLT CLUMPS PRESENT
[2019-09-23 05:12] LABS: ALBUMIN 2.3 g/dL (3.5-5.0); BILIRUBIN,DIRECT 0.2 mg/dL (0.0-0.3); BILIRUBIN,TOTAL 0.7 mg/dL (0.2-1.0); CREATININE 0.8 mg/dL (0.5-1.5); TOTAL PROTEIN, SERUM 7.1 g/dL (6.0-8.3)
[2019-09-23] MEDS: FUROSEMIDE 10 MG/ML 2ML VIAL IV SCH ×2 (06:03→16:25)
[2019-09-23] MEDS: LEVOTHYROXINE 50 MCG TABLET PO SCH (06:03)
--- NOTE | 2019-09-23 08:30 | NUR ---
ASSESSMENT ENCOUNTERED PT SEMI PARSONS'S POSITION, A&OX3, EATING BREAKFAST, NO THROAT CLEARING OR COUGH WITH FOOD NOR FLUIDS, PT ON CONTINUOUS O2SAT WITH HIGH FLOW 50L AND NRB. O2SATS 78-82%, INFORMED PT THAT UPON COMPLETION OF BREAKFAST TO RETURN TO PRONE POSITION FOR BETTER OXYGENATION. PT UNDERSTOOD AND STATED THAT SHE WILL. PT DENIES PAIN, DIZZINESS OR NAUSEA. CALL LIGHT WITHIN REACH.
[2019-09-23 08:41] VITALS: BP 124/63
[2019-09-23] MEDS: MULTIVITAMIN WITH MINERALS TABLET PO SCH (09:16)
[2019-09-23] MEDS: PANTOPRAZOLE SODIUM 40 MG TABLET.DR PO SCH (09:16)
[2019-09-23] MEDS: ZINC SULFATE 220 CAPSULE PO SCH (09:16)
[2019-09-23] MEDS: ASCORBIC ACID 500 MG TAB PO SCH (09:16)
[2019-09-23] MEDS: DEXAMETHASONE SOD PHOSPHATE 4 MG/ML 1ML VIAL IVP SCH (09:17)
[2019-09-23] MEDS: ENOXAPARIN SODIUM 40 MG/0.4 ML SYRINGE SQ SCH ×2 (09:17→21:15)
[2019-09-23 12:14] VITALS: BP 100/71
--- NOTE | 2019-09-23 14:37 | NUR ---
PHONE CALL Patient's son, Cal Kaur updated and given opportunity to ask questions.
[2019-09-23 16:24] VITALS: BP 126/71
[2019-09-23 19:30] VITALS: BP 122/66
[2019-09-23] MEDS: ATORVASTATIN CALCIUM 10 MG TABLET PO SCH (21:13)
[2019-09-24] VITALS: BP 109/55
[2019-09-24 04:21] VITALS: BP 116/96
[2019-09-24] MEDS: FUROSEMIDE 10 MG/ML 2ML VIAL IV SCH ×2 (04:25→16:56)
[2019-09-24 05:33] LABS: BASOPHILS % (AUTO) 0.1 % (0.0-5.0); EOSINOPHILS % (AUTO) 0.9 % (0.0-8.0); HEMATOCRIT 45.7 % (36-48); LYMPHOCYTES % (AUTO) 7.1 % (21.0-51.0); MEAN CORPUSCULAR HEMOGLOBIN 29.3 pg (27.0-33.0); MEAN CORPUSCULAR HGB CONC 33.7 g/dL (32.0-36.0); MONOCYTES % (AUTO) 2.5 % (3.0-13.0); NEUTROPHILS % (AUTO) 88.6 % (40.0-77.0); PLATELET COUNT (AUTO) 395 K/uL (130-400); RED BLOOD CELL COUNT(AUTO) 5.25 MIL/uL (4.00-5.50); WHITE BLOOD COUNT (AUTO) 19.2 K/uL (4.8-10.8)
[2019-09-24] MEDS: PANTOPRAZOLE SODIUM 40 MG TABLET.DR PO SCH (05:50)
[2019-09-24] MEDS: LEVOTHYROXINE 50 MCG TABLET PO SCH (05:50)
[2019-09-24 06:03] LABS: CREATININE 0.7 mg/dL (0.5-1.5); MAGNESIUM 2.5 mg/dL (1.80-2.40)
[2019-09-24 08:12] VITALS: BP 119/52
[2019-09-24] MEDS: DEXAMETHASONE SOD PHOSPHATE 4 MG/ML 1ML VIAL IVP SCH (08:29)
[2019-09-24] MEDS: ZINC SULFATE 220 CAPSULE PO SCH (08:29)
[2019-09-24] MEDS: ASCORBIC ACID 500 MG TAB PO SCH (08:29)
[2019-09-24] MEDS: MULTIVITAMIN WITH MINERALS TABLET PO SCH (08:29)
[2019-09-24] MEDS: ENOXAPARIN SODIUM 40 MG/0.4 ML SYRINGE SQ SCH ×2 (08:30→21:42)
[2019-09-24 10:26] LABS: ABG BASE EXCESS 7.8 mmol/L (-2.0-3.0); ABG HCO3 31.8 mmol/L (21.0-28.0); ABG PCO2 42 mmHg (32-45)
--- NOTE | 2019-09-24 12:14 | NUR ---
PHONE CALL Patient's son, Cal Kaur updated and given opportunity to ask questions.
[2019-09-24 12:19] VITALS: BP 118/59
[2019-09-24 16:28] VITALS: BP 131/71
[2019-09-24] MEDS ORDERED: MAG HYDROX/AL HYDROX/SIMETH ES 30 ML SUSP UDCUP PO PRN (16:45)
[2019-09-24 19:33] VITALS: BP 115/61
[2019-09-24] MEDS: ATORVASTATIN CALCIUM 10 MG TABLET PO SCH (21:41)
[2019-09-25] VITALS (7 sets, daily range): BP systolic 109–125; BP diastolic 48–77
[2019-09-25 04:29] LABS: BASOPHILS % (AUTO) 0.2 % (0.0-5.0); EOSINOPHILS % (AUTO) 0.8 % (0.0-8.0); HEMATOCRIT 47.5 % (36-48); LYMPHOCYTES % (AUTO) 7.7 % (21.0-51.0); MEAN CORPUSCULAR HEMOGLOBIN 29.6 pg (27.0-33.0); MEAN CORPUSCULAR HGB CONC 34.1 g/dL (32.0-36.0); MEAN CORPUSCULAR VOLUME 86.8 fL (79-99); MONOCYTES % (AUTO) 2.3 % (3.0-13.0); NEUTROPHILS % (AUTO) 88.2 % (40.0-77.0); PLATELET COUNT (AUTO) 418 K/uL (130-400); RED BLOOD CELL COUNT(AUTO) 5.47 MIL/uL (4.00-5.50); RED CELL DISTRIBUTION WIDTH 12.6 % (11.0-15.5); WHITE BLOOD COUNT (AUTO) 20.3 K/uL (4.8-10.8)
[2019-09-25] MEDS: FUROSEMIDE 10 MG/ML 2ML VIAL IV SCH ×2 (04:30→16:28)
[2019-09-25 04:45] LABS: MAGNESIUM 2.5 mg/dL (1.80-2.40); POTASSIUM 3.8 mmol/L (3.5-5.1)
[2019-09-25] MEDS: LEVOTHYROXINE 50 MCG TABLET PO SCH (05:53)
[2019-09-25] MEDS: MULTIVITAMIN WITH MINERALS TABLET PO SCH (08:43)
[2019-09-25] MEDS: PANTOPRAZOLE SODIUM 40 MG TABLET.DR PO SCH (08:43)
[2019-09-25] MEDS: ASCORBIC ACID 500 MG TAB PO SCH (08:43)
[2019-09-25] MEDS: ZINC SULFATE 220 CAPSULE PO SCH (08:43)
[2019-09-25] MEDS: ENOXAPARIN SODIUM 40 MG/0.4 ML SYRINGE SQ SCH ×2 (08:44→20:50)
[2019-09-25] MEDS: DEXAMETHASONE SOD PHOSPHATE 4 MG/ML 1ML VIAL IVP SCH (08:44)
[2019-09-25] MEDS: ATORVASTATIN CALCIUM 10 MG TABLET PO SCH (20:49)
[2019-09-26 03:00] VITALS: BP 131/70
[2019-09-26 04:35] LABS: BASOPHILS % (AUTO) 0.1 % (0.0-5.0); EOSINOPHILS % (AUTO) 0.7 % (0.0-8.0); HEMATOCRIT 45.6 % (36-48); LYMPHOCYTES % (AUTO) 7.8 % (21.0-51.0); MEAN CORPUSCULAR HEMOGLOBIN 29.4 pg (27.0-33.0); MEAN CORPUSCULAR HGB CONC 34.2 g/dL (32.0-36.0); MEAN CORPUSCULAR VOLUME 85.9 fL (79-99); MONOCYTES % (AUTO) 2.5 % (3.0-13.0); NEUTROPHILS % (AUTO) 87.9 % (40.0-77.0); PLATELET COUNT (AUTO) 394 K/uL (130-400); RED BLOOD CELL COUNT(AUTO) 5.31 MIL/uL (4.00-5.50); RED CELL DISTRIBUTION WIDTH 12.7 % (11.0-15.5); WHITE BLOOD COUNT (AUTO) 20.9 K/uL (4.8-10.8)
[2019-09-26] MEDS: FUROSEMIDE 10 MG/ML 2ML VIAL IV SCH ×2 (05:19→16:41)
[2019-09-26] MEDS: LEVOTHYROXINE 50 MCG TABLET PO SCH (05:19)
[2019-09-26 05:29] LABS: ALBUMIN 2.3 g/dL (3.5-5.0); BILIRUBIN,TOTAL 0.7 mg/dL (0.2-1.0); CREATININE 0.9 mg/dL (0.5-1.5); MAGNESIUM 2.3 mg/dL (1.80-2.40); PHOSPHORUS 3.7 mg/dL (2.5-4.9); POTASSIUM 3.4 mmol/L (3.5-5.1); TOTAL PROTEIN, SERUM 7.1 g/dL (6.0-8.3)
[2019-09-26 08:00] VITALS: BP 102/62
[2019-09-26] MEDS: ASCORBIC ACID 500 MG TAB PO SCH (08:43)
[2019-09-26] MEDS: PANTOPRAZOLE SODIUM 40 MG TABLET.DR PO SCH (08:43)
[2019-09-26] MEDS: ZINC SULFATE 220 CAPSULE PO SCH (08:43)
[2019-09-26] MEDS: MULTIVITAMIN WITH MINERALS TABLET PO SCH (08:43)
[2019-09-26] MEDS: ENOXAPARIN SODIUM 40 MG/0.4 ML SYRINGE SQ SCH (08:44)
[2019-09-26 12:00] VITALS: BP 119/69
[2019-09-26] MEDS: LACTULOSE 20 GM/30 ML UDCUP PO PRN (16:41)
[2019-09-26 18:31] VITALS: BP 100/75
[2019-09-26 19:00] VITALS: BP 128/67
[2019-09-26] MEDS ORDERED: METOPROLOL TARTRATE 1 MG/ML 5ML VIAL IV SCH (20:45)
[2019-09-26] MEDS: METOPROLOL TARTRATE 25 MG TAB PO SCH (21:41)
[2019-09-26] MEDS: ATORVASTATIN CALCIUM 10 MG TABLET PO SCH (21:41)
[2019-09-26] MEDS: ENOXAPARIN SODIUM 80 MG/0.8 ML SQ SCH (21:41)
[2019-09-26 23:00] VITALS: BP 124/63
[2019-09-27 03:00] VITALS: BP 123/69
[2019-09-27] MEDS: FUROSEMIDE 10 MG/ML 2ML VIAL IV SCH (05:15)
[2019-09-27] MEDS: LEVOTHYROXINE 50 MCG TABLET PO SCH (05:15)
[2019-09-27 06:26] LABS: HEMATOCRIT 46.1 % (36-48); MEAN CORPUSCULAR HEMOGLOBIN 29.4 pg (27.0-33.0); MEAN CORPUSCULAR HGB CONC 34.3 g/dL (32.0-36.0); MEAN CORPUSCULAR VOLUME 85.7 fL (79-99); RED BLOOD CELL COUNT(AUTO) 5.38 MIL/uL (4.00-5.50); RED CELL DISTRIBUTION WIDTH 12.5 % (11.0-15.5); WHITE BLOOD COUNT (AUTO) 20.1 K/uL (4.8-10.8)
[2019-09-27 06:51] LABS: ALBUMIN 2.5 g/dL (3.5-5.0); BILIRUBIN,TOTAL 0.9 mg/dL (0.2-1.0); CREATININE 0.9 mg/dL (0.5-1.5)
[2019-09-27 07:30] VITALS: BP 98/52
[2019-09-27] MEDS: MULTIVITAMIN WITH MINERALS TABLET PO SCH (07:50)
[2019-09-27] MEDS: POTASSIUM CHLORIDE 20MEQ/100ML 100 ML IV PRN (07:50)
[2019-09-27] MEDS: PANTOPRAZOLE SODIUM 40 MG TABLET.DR PO SCH (07:50)
[2019-09-27] MEDS: ZINC SULFATE 220 CAPSULE PO SCH (07:50)
[2019-09-27] MEDS: ASCORBIC ACID 500 MG TAB PO SCH (07:50)
[2019-09-27] MEDS: METOPROLOL TARTRATE 25 MG TAB PO SCH ×2 (07:50→20:46)
[2019-09-27] MEDS: ENOXAPARIN SODIUM 80 MG/0.8 ML SQ SCH ×2 (08:21→20:47)
[2019-09-27] MEDS: FAMOTIDINE/PF 20 MG/2 ML VIAL IV SCH ×2 (09:40→20:46)
[2019-09-27 11:30] VITALS: BP 112/54
[2019-09-27 15:30] VITALS: BP 132/67
--- NOTE | 2019-09-27 17:45 | NUR ---
PHYSICIAN ROUNDS DR VERAS ORDERS RECEIVED TO CHANGE LASIX TO 20MG PO DAILY AND NOT TO GIVE THE EVENING DOSE.
[2019-09-27 19:00] VITALS: BP 126/72
[2019-09-27] MEDS: ATORVASTATIN CALCIUM 10 MG TABLET PO SCH (20:46)
[2019-09-27 23:00] VITALS: BP 154/96
[2019-09-28 03:00] VITALS: BP 101/40
[2019-09-28] MEDS: LEVOTHYROXINE 50 MCG TABLET PO SCH (05:24)
[2019-09-28 07:30] VITALS: BP 117/47
[2019-09-28] MEDS: FAMOTIDINE/PF 20 MG/2 ML VIAL IV SCH ×2 (08:31→21:53)
[2019-09-28] MEDS: METOPROLOL TARTRATE 25 MG TAB PO SCH ×2 (08:32→21:54)
[2019-09-28] MEDS: ZINC SULFATE 220 CAPSULE PO SCH (08:32)
[2019-09-28] MEDS: ASCORBIC ACID 500 MG TAB PO SCH (08:32)
[2019-09-28] MEDS: FUROSEMIDE 20 MG TABLET PO SCH (08:32)
[2019-09-28] MEDS: MULTIVITAMIN WITH MINERALS TABLET PO SCH (08:32)
[2019-09-28] MEDS: ENOXAPARIN SODIUM 80 MG/0.8 ML SQ SCH ×2 (08:33→21:54)
[2019-09-28 11:30] VITALS: BP 96/47
[2019-09-28] MEDS: GUAIFENESIN-CODEINE 5 ML SYRUP PO PRN (14:46)
--- NOTE | 2019-09-28 15:03 | NUR ---
PHYSICIAN ROUNDS DR GRUPO LOMBARDO ROUNDED ON PATIENT AND ORDERS RECEIVED FOR CBC, BMP AND CHEST XRAY IN AM
[2019-09-28 15:30] VITALS: BP 97/54
[2019-09-28 17:03] LABS: ALBUMIN 2.2 g/dL (3.5-5.0); BILIRUBIN,TOTAL 0.7 mg/dL (0.2-1.0); POTASSIUM 3.2 mmol/L (3.5-5.1); TOTAL PROTEIN, SERUM 6.8 g/dL (6.0-8.3)
[2019-09-28] MEDS: POTASSIUM CHLORIDE 20 MEQ ERTAB PO PRN ×2 (17:18→21:56)
[2019-09-28 20:00] VITALS: BP 119/55
[2019-09-28] MEDS: ATORVASTATIN CALCIUM 10 MG TABLET PO SCH (21:58)
[2019-09-29] VITALS (7 sets, daily range): BP systolic 111–138; BP diastolic 46–78
[2019-09-29] MEDS: LEVOTHYROXINE 50 MCG TABLET PO SCH (05:34)
[2019-09-29] MEDS: POTASSIUM CHLORIDE 20 MEQ ERTAB PO PRN ×3 (05:35→23:40)
[2019-09-29 07:34] LABS: BASOPHILS % (AUTO) 0.2 % (0.0-5.0); EOSINOPHILS % (AUTO) 2.6 % (0.0-8.0); HEMATOCRIT 42.1 % (36-48); LYMPHOCYTES % (AUTO) 8.5 % (21.0-51.0); MEAN CORPUSCULAR HEMOGLOBIN 29.7 pg (27.0-33.0); MEAN CORPUSCULAR HGB CONC 34.2 g/dL (32.0-36.0); MEAN CORPUSCULAR VOLUME 86.8 fL (79-99); NEUTROPHILS % (AUTO) 86.1 % (40.0-77.0); PLATELET COUNT (AUTO) 322 K/uL (130-400); RED BLOOD CELL COUNT(AUTO) 4.85 MIL/uL (4.00-5.50); RED CELL DISTRIBUTION WIDTH 12.8 % (11.0-15.5); WHITE BLOOD COUNT (AUTO) 18.6 K/uL (4.8-10.8)
--- NOTE | 2019-09-29 08:30 | NUR ---
am assessment PT AWAKE AND ALERT, O2 SATS FLUCTUATE BETWEEN LOW 80'S AND LOW 90'S, PT SLIGHTLY ANXIOUS. O2 PER HIGH LOW NC AND 100 NON-REBREATHER. MD TO BE MADE AWARE.
--- NOTE | 2019-09-29 08:45 | NUR ---
ABG CALL PLACED TO DR MADDEN FOR STATUS REPORT ON PT; ORDERS RECEIVED FOR ABG.
[2019-09-29 08:51] LABS: ABG HCO3 29.8 mmol/L (21.0-28.0); ABG PCO2 40 mmHg (32-45)
[2019-09-29 08:53] LABS: ABG BASE EXCESS 5.1 mmol/L (-2.0-3.0); ABG HCO3 28.7 mmol/L (21.0-28.0); ABG OXYGEN SATURATION 84.6 % (95.0-99.0); ABG PCO2 39 mmHg (32-45)
[2019-09-29] MEDS: ENOXAPARIN SODIUM 80 MG/0.8 ML SQ SCH (09:00)
--- NOTE | 2019-09-29 09:00 | NUR ---
LOVENOX LOVENOX HELD FOR SECONDARY TO PT HAVING NOSEBLEED AWARE
--- NOTE | 2019-09-29 09:15 | NUR ---
TRANSFER PT MADE AWARE PER DR MADDEN, ORDER RECEIVED TO TRANSFER TO ICU FOR INTUBATION SECONDARY TO O2 SATS LOW 80'S WITH EPISODES OF RESPIRATORY DISTRESS AND NOSE BLEED. PT STATES NOT WANTING TO TRANSFER TO ICU AND STATES WISHES ARE NOT TO BE INTUBATED. PT EDUCATED ON IMPORTANCE OF TREATING RESPIRATORY DISTRESS, PT ACKNOWLEDGED INFORMATION, REFUSES TO BE INTUBATED. MD TO BE MADE AWARE
[2019-09-29 09:19] LABS: BILIRUBIN,TOTAL 0.7 mg/dL (0.2-1.0); CREATININE 0.7 mg/dL (0.5-1.5); POTASSIUM 3.8 mmol/L (3.5-5.1); TOTAL PROTEIN, SERUM 7.1 g/dL (6.0-8.3)
[2019-09-29] MEDS: MULTIVITAMIN WITH MINERALS TABLET PO SCH (09:36)
[2019-09-29] MEDS: METOPROLOL TARTRATE 25 MG TAB PO SCH ×2 (09:36→21:05)
[2019-09-29] MEDS: ASCORBIC ACID 500 MG TAB PO SCH (09:36)
[2019-09-29] MEDS: ZINC SULFATE 220 CAPSULE PO SCH (09:36)
[2019-09-29] MEDS: FAMOTIDINE/PF 20 MG/2 ML VIAL IV SCH ×2 (09:36→21:05)
[2019-09-29] MEDS: FUROSEMIDE 20 MG TABLET PO SCH (09:36)
[2019-09-29] MEDS ORDERED: PHARMACY COMMUNICATION MISC SCH (10:15)
[2019-09-29] MEDS: SODIUM CHLORIDE 45 ML SPRY NS SCH ×7 (10:38→21:07)
--- NOTE | 2019-09-29 11:30 | NUR ---
DR MARYANNE MADDEN IN TO SEE PT; STATES NOT TO TRANSFER PT AT THIS TIME.
--- NOTE | 2019-09-29 14:00 | NUR ---
PM ASSESSMENT PT AWAKE AND ALERT, ENCOURAGED TO PRONE, REFUSED AT THIS TIME. O2 SAT 89-92% ON NON-REBREATHER 100 % AND HIGH FLOW NASAL CANNULA. ASSISTANCE WITH ADLS, PT PREVIOUSLY STATED NOT WANTING INTUBATION. PT STATES WANTING TO CONTINUE TO BE FULL CODE WITH INTUBATION IF NEEDED.
--- NOTE | 2019-09-29 16:35 | NUR ---
O2 SAT PT IN BED WITH EYES CLOSED, NO SIGNS OF DISTRESS, O2 SAT 92-94%, CONTINUES WITH NONREBREATHER MASK AND HIGH FLOW NASAL CANNULA. ASSISTANCE WITH ADLS CALL LIGHT WITHIN REACH
--- NOTE | 2019-09-29 18:30 | NUR ---
O2 SAT PT AWAKE, ALERT, AND ORIENTED. CALM AND COOPERATIVE DENIES FEELING SOB, O2 SAT 92-94%. CALL LIGHT WITHIN REACH
[2019-09-29] MEDS: ARTIFICAL TEARS SOL 15 ML OP SCH (21:05)
[2019-09-29] MEDS: ATORVASTATIN CALCIUM 10 MG TABLET PO SCH (21:05)
[2019-09-30] MEDS: SODIUM CHLORIDE 45 ML SPRY NS SCH ×12 (00:32→23:52)
[2019-09-30 03:05] VITALS: BP 100/52
[2019-09-30] MEDS: LEVOTHYROXINE 50 MCG TABLET PO SCH (05:37)
[2019-09-30 08:00] VITALS: BP 122/61
[2019-09-30] MEDS: ARTIFICAL TEARS SOL 15 ML OP SCH ×2 (09:00→20:59)
[2019-09-30] MEDS: METOPROLOL TARTRATE 25 MG TAB PO SCH ×2 (09:43→20:58)
[2019-09-30] MEDS: ASCORBIC ACID 500 MG TAB PO SCH (09:43)
[2019-09-30] MEDS: FAMOTIDINE/PF 20 MG/2 ML VIAL IV SCH ×2 (09:43→20:58)
[2019-09-30] MEDS: FUROSEMIDE 20 MG TABLET PO SCH (09:43)
[2019-09-30] MEDS: ZINC SULFATE 220 CAPSULE PO SCH (09:43)
[2019-09-30] MEDS: MULTIVITAMIN WITH MINERALS TABLET PO SCH (09:44)
[2019-09-30] MEDS: ENOXAPARIN SODIUM 40 MG/0.4 ML SYRINGE SQ SCH ×2 (09:47→20:58)
[2019-09-30 11:30] VITALS: BP 123/67
[2019-09-30 15:30] VITALS: BP 125/76
--- NOTE | 2019-09-30 18:08 | NUR ---
PT AAOx3. ABLE TO MAKE NEEDS KNOWN. COVID+, ISOLATION PRECAUTIONS MAINTAINED. O2 SAT 89-9% ON 100% NRB AND HIGH FLOW NASAL CANNULA. O2 SATS DECREASE WITH INCREASED ACTIVITY AND ANXIETY. RELAXATION TECHNIQUES USED TO DECREASE PT'S ANXIETY. STRONGLY ENCOURAGED TO PRONE BUT PATIENT REFUSED AT THIS TIME. ASSISTANCE WITH ADLS PROVIDED NEEDED. PT'S SON, ROYER ROJO, UPDATED VIA PHONE ON PT'S CONDITION. ROYER ROJO REQUESTED ANTIANXIETY MEDICATION AND LORATADINE FOR HIS MOTHER. ROYER ROJO STATED, "ANY NEW TREATMENT AT THIS POINT WON'T HURT HER. IT MAY JUST HELP. THEY'VE BEEN TRYING THIS STUFF IN [place], AND IT'S WORKING." REQUESTED TO SPEAK WITH MEDICAL PROVIDER.
[2019-09-30 19:30] VITALS: BP 102/50
[2019-09-30] MEDS: ENOXAPARIN SODIUM 80 MG/0.8 ML SQ SCH (20:18)
[2019-09-30] MEDS: ATORVASTATIN CALCIUM 10 MG TABLET PO SCH (20:58)
[2019-09-30 23:06] VITALS: BP 108/58
[2019-10-01] MEDS: SODIUM CHLORIDE 45 ML SPRY NS SCH ×11 (02:19→20:40)
[2019-10-01] MEDS: ACETAMINOPHEN 325 MG TAB PO PRN (02:19)
[2019-10-01 03:44] VITALS: BP 92/63
[2019-10-01 04:03] LABS: ABG BASE EXCESS 5.8 mmol/L (-2.0-3.0); ABG HCO3 29.6 mmol/L (21.0-28.0); ABG OXYGEN SATURATION 90.6 % (95.0-99.0); ABG PCO2 40 mmHg (32-45)
[2019-10-01] MEDS: LEVOTHYROXINE 50 MCG TABLET PO SCH (05:24)
[2019-10-01 06:21] LABS: HEMATOCRIT 40.1 % (36-48); MEAN CORPUSCULAR HEMOGLOBIN 29.5 pg (27.0-33.0); MEAN CORPUSCULAR HGB CONC 33.7 g/dL (32.0-36.0); MEAN CORPUSCULAR VOLUME 87.6 fL (79-99); PLATELET COUNT (AUTO) 313 K/uL (130-400); RED BLOOD CELL COUNT(AUTO) 4.58 MIL/uL (4.00-5.50); RED CELL DISTRIBUTION WIDTH 13.5 % (11.0-15.5); WHITE BLOOD COUNT (AUTO) 16.9 K/uL (4.8-10.8)
[2019-10-01 06:33] LABS: BILIRUBIN,TOTAL 0.5 mg/dL (0.2-1.0); CREATININE 0.8 mg/dL (0.5-1.5); MAGNESIUM 2.3 mg/dL (1.80-2.40); POTASSIUM 4.2 mmol/L (3.5-5.1); TOTAL PROTEIN, SERUM 6.9 g/dL (6.0-8.3)
[2019-10-01 08:00] VITALS: BP 132/62
[2019-10-01 08:34] LABS: BAND NEUTROPHILS % (MANUAL) 1 % (0-2); EOSINOPHILS % (MANUAL) 1 % (1-6); LYMPHOCYTES % (MANUAL) 10 % (22-44); MAN.DIFF COMMENT-IMPRESSION MANUAL DIFFERENTIAL; MONOCYTES % (MANUAL) 1 % (2-9); PLATELET MORPHOLOGY COMMENT ADEQUATE; SEGMENTED NEUTROPHILS % 87 % (40-70)
[2019-10-01] MEDS: ARTIFICAL TEARS SOL 15 ML OP SCH ×2 (09:00→19:35)
[2019-10-01] MEDS: ENOXAPARIN SODIUM 80 MG/0.8 ML SQ SCH ×2 (09:00→19:35)
[2019-10-01] MEDS: ZINC SULFATE 220 CAPSULE PO SCH (09:03)
[2019-10-01] MEDS: CETIRIZINE HCL 5 MG TABLET PO SCH (09:03)
[2019-10-01] MEDS: METOPROLOL TARTRATE 25 MG TAB PO SCH ×2 (09:03→20:39)
[2019-10-01] MEDS: FAMOTIDINE/PF 20 MG/2 ML VIAL IV SCH ×2 (09:03→20:39)
[2019-10-01] MEDS: ASCORBIC ACID 500 MG TAB PO SCH (09:03)
[2019-10-01] MEDS: MULTIVITAMIN WITH MINERALS TABLET PO SCH (09:03)
[2019-10-01] MEDS: FUROSEMIDE 20 MG TABLET PO SCH (09:03)
[2019-10-01] MEDS: ENOXAPARIN SODIUM 40 MG/0.4 ML SYRINGE SQ SCH ×2 (09:04→20:39)
[2019-10-01 11:30] VITALS: BP 120/74
[2019-10-01 16:45] VITALS: BP 109/80
[2019-10-01] MEDS: ATORVASTATIN CALCIUM 10 MG TABLET PO SCH (20:39)
[2019-10-01 21:41] VITALS: BP 122/71
[2019-10-02] VITALS (7 sets, daily range): BP systolic 103–153; BP diastolic 47–81
[2019-10-02] MEDS: SODIUM CHLORIDE 45 ML SPRY NS SCH ×10 (02:30→20:31)
[2019-10-02 04:49] LABS: BASOPHILS % (AUTO) 0.4 % (0.0-5.0); EOSINOPHILS % (AUTO) 2.9 % (0.0-8.0); HEMATOCRIT 42.2 % (36-48); LYMPHOCYTES % (AUTO) 8.6 % (21.0-51.0); MEAN CORPUSCULAR HEMOGLOBIN 29.6 pg (27.0-33.0); MEAN CORPUSCULAR HGB CONC 33.6 g/dL (32.0-36.0); MEAN CORPUSCULAR VOLUME 87.9 fL (79-99); MONOCYTES % (AUTO) 2.7 % (3.0-13.0); NEUTROPHILS % (AUTO) 84.8 % (40.0-77.0); PLATELET COUNT (AUTO) 333 K/uL (130-400); RED CELL DISTRIBUTION WIDTH 13.4 % (11.0-15.5)
[2019-10-02 05:17] LABS: ALBUMIN 2.1 g/dL (3.5-5.0); BILIRUBIN,TOTAL 0.6 mg/dL (0.2-1.0); CREATININE 0.8 mg/dL (0.5-1.5); POTASSIUM 4.1 mmol/L (3.5-5.1); TOTAL PROTEIN, SERUM 7.4 g/dL (6.0-8.3)
[2019-10-02] MEDS: LEVOTHYROXINE 50 MCG TABLET PO SCH (05:32)
--- NOTE | 2019-10-02 08:00 | NUR ---
PT AAOx3. ABLE TO MAKE NEEDS KNOWN. COVID+, ISOLATION PRECAUTIONS MAINTAINED. ST ON TELE. O2 SAT 90% ON 100% NRB AND HIGH FLOW NASAL CANNULA 50L. O2 SATS DECREASES WITH INCREASED ACTIVITY AND ANXIETY. STRONGLY ENCOURAGED TO PRONE BUT PATIENT REFUSED AT THIS TIME. ASSISTANCE WITH ADLS PROVIDED NEEDED. WILL CONTINUE TO MONITOR. SAFETY MEASURES IN PLACE.
[2019-10-02] MEDS: ENOXAPARIN SODIUM 80 MG/0.8 ML SQ SCH ×2 (09:00→19:52)
[2019-10-02] MEDS: ARTIFICAL TEARS SOL 15 ML OP SCH ×2 (09:00→19:52)
[2019-10-02] MEDS: CETIRIZINE HCL 5 MG TABLET PO SCH (09:18)
[2019-10-02] MEDS: METOPROLOL TARTRATE 25 MG TAB PO SCH ×2 (09:18→20:29)
[2019-10-02] MEDS: MULTIVITAMIN WITH MINERALS TABLET PO SCH (09:18)
[2019-10-02] MEDS: FUROSEMIDE 20 MG TABLET PO SCH (09:18)
[2019-10-02] MEDS: ASCORBIC ACID 500 MG TAB PO SCH (09:18)
[2019-10-02] MEDS: FAMOTIDINE/PF 20 MG/2 ML VIAL IV SCH ×2 (09:18→20:29)
[2019-10-02] MEDS: ZINC SULFATE 220 CAPSULE PO SCH (09:18)
[2019-10-02] MEDS: ENOXAPARIN SODIUM 40 MG/0.4 ML SYRINGE SQ SCH ×2 (09:19→20:31)
--- NOTE | 2019-10-02 10:35 | NUR ---
RD FOLLOW UP Pt tolerating GI soft/bland diet order with no report of GI distress. PO intake at 50%. Last recorded LBM 09/20/19. Zinc, MVI, Vit C supplementation in place. S/p plasma Tx and Remdesivir. Insufficient nutritional intake, increased nutritional needs secondary to increased work of breathing. Recommend Ensure BID Recommend 60mL ProMod QD RD to continue to monitor. Please notify RD as additional nutrition concerns arise. Thank you.
--- NOTE | 2019-10-02 11:59 | NUR ---
RESTLESS IN BED WITH INCREASED ANXIETY NOTED. BROOKLYNN IN USE. HEART RATE 140, O2 SAT 73% ON 100% NRB AND HIGH FLOW NASAL CANNULA 50L. REPOSITIONED WITH ASSIST TO LIE PRONE. RT NOTIFIED VIA PHONE. O2 SATS INCREASED TO 85% AFTER APPROXIMATELY 15 MINUTES. RELAXATION TECHNIQUES USED TO DECREASE PT'S ANXIETY. SANDRA CARREON ROUNDING AND UPDATED ON PATIENT'S CURRENT STATUS. RESPIRATORY THERAPIST AT BEDSIDE, INCREASED PATIENT'S HIGH FLOW TO 70L. O2 SATS INCREASED TO 90%. PATIENT APPEARS TO BE LESS ANXIOUS AT THIS TIME. WILL CONTINUE TO MONITOR. SAFETY MEASURES IN PLACE.
--- NOTE | 2019-10-02 18:43 | NUR ---
PT AAOx3. ABLE TO MAKE NEEDS KNOWN. COVID+, ISOLATION PRECAUTIONS MAINTAINED. ST ON TELE. O2 SAT 92% ON 100% NRB AND HIGH FLOW NASAL CANNULA 70L. REMAINS IN PRONE POSITION. WILL CONTINUE TO MONITOR. SAFETY MEASURES IN PLACE.
[2019-10-02] MEDS: ATORVASTATIN CALCIUM 10 MG TABLET PO SCH (20:29)
[2019-10-03] MEDS: SODIUM CHLORIDE 45 ML SPRY NS SCH ×13 (00:05→20:40)
[2019-10-03 03:00] VITALS: BP 124/61
[2019-10-03 04:33] LABS: ABG BASE EXCESS 3.9 mmol/L (-2.0-3.0); ABG HCO3 27.5 mmol/L (21.0-28.0); ABG PCO2 38 mmHg (32-45)
[2019-10-03 05:00] LABS: BASOPHILS % (AUTO) 0.4 % (0.0-5.0); EOSINOPHILS % (AUTO) 2.8 % (0.0-8.0); HEMATOCRIT 40.5 % (36-48); LYMPHOCYTES % (AUTO) 7.1 % (21.0-51.0); MEAN CORPUSCULAR HEMOGLOBIN 29.9 pg (27.0-33.0); MEAN CORPUSCULAR HGB CONC 34.1 g/dL (32.0-36.0); MEAN CORPUSCULAR VOLUME 87.7 fL (79-99); MONOCYTES % (AUTO) 3.2 % (3.0-13.0); NEUTROPHILS % (AUTO) 86.1 % (40.0-77.0); PLATELET COUNT (AUTO) 342 K/uL (130-400); RED BLOOD CELL COUNT(AUTO) 4.62 MIL/uL (4.00-5.50); RED CELL DISTRIBUTION WIDTH 13.6 % (11.0-15.5); WHITE BLOOD COUNT (AUTO) 16.4 K/uL (4.8-10.8)
[2019-10-03 05:15] LABS: BILIRUBIN,TOTAL 0.7 mg/dL (0.2-1.0); CREATININE 0.8 mg/dL (0.5-1.5); POTASSIUM 3.9 mmol/L (3.5-5.1); TOTAL PROTEIN, SERUM 7.3 g/dL (6.0-8.3)
[2019-10-03] MEDS: LEVOTHYROXINE 50 MCG TABLET PO SCH (05:28)
[2019-10-03] MEDS: ASCORBIC ACID 500 MG TAB PO SCH (07:38)
[2019-10-03] MEDS: FUROSEMIDE 20 MG TABLET PO SCH (07:38)
[2019-10-03] MEDS: METOPROLOL TARTRATE 25 MG TAB PO SCH ×2 (07:38→20:38)
[2019-10-03] MEDS: CETIRIZINE HCL 5 MG TABLET PO SCH (07:38)
[2019-10-03] MEDS: MULTIVITAMIN WITH MINERALS TABLET PO SCH (07:38)
[2019-10-03] MEDS: ARTIFICAL TEARS SOL 15 ML OP SCH ×2 (07:38→19:40)
[2019-10-03] MEDS: ZINC SULFATE 220 CAPSULE PO SCH (07:38)
[2019-10-03] MEDS: FAMOTIDINE/PF 20 MG/2 ML VIAL IV SCH ×2 (07:38→20:38)
[2019-10-03] MEDS: ENOXAPARIN SODIUM 40 MG/0.4 ML SYRINGE SQ SCH ×2 (07:39→20:40)
[2019-10-03 08:00] VITALS: BP 124/78
[2019-10-03] MEDS: ENOXAPARIN SODIUM 80 MG/0.8 ML SQ SCH ×2 (08:32→19:40)
[2019-10-03] MEDS: LACTULOSE 20 GM/30 ML UDCUP PO PRN (10:03)
[2019-10-03] MEDS: POTASSIUM CHLORIDE 20 MEQ ERTAB PO PRN (10:03)
[2019-10-03 11:30] VITALS: BP 100/59
[2019-10-03 15:30] VITALS: BP 112/72
[2019-10-03 19:00] VITALS: BP 146/72
[2019-10-03] MEDS: ATORVASTATIN CALCIUM 10 MG TABLET PO SCH (20:38)
[2019-10-03 23:00] VITALS: BP 136/92
[2019-10-04] MEDS: SODIUM CHLORIDE 45 ML SPRY NS SCH ×12 (02:25→20:56)
[2019-10-04 03:00] VITALS: BP 137/79
[2019-10-04] MEDS: LEVOTHYROXINE 50 MCG TABLET PO SCH (05:46)
[2019-10-04 08:00] VITALS: BP 109/72
[2019-10-04] MEDS: ZINC SULFATE 220 CAPSULE PO SCH (08:27)
[2019-10-04] MEDS: ASCORBIC ACID 500 MG TAB PO SCH (08:27)
[2019-10-04] MEDS: MULTIVITAMIN WITH MINERALS TABLET PO SCH (08:27)
[2019-10-04] MEDS: FUROSEMIDE 20 MG TABLET PO SCH (08:27)
[2019-10-04] MEDS: FAMOTIDINE/PF 20 MG/2 ML VIAL IV SCH ×2 (08:27→20:53)
[2019-10-04] MEDS: METOPROLOL TARTRATE 25 MG TAB PO SCH ×2 (08:27→20:53)
[2019-10-04] MEDS: CETIRIZINE HCL 5 MG TABLET PO SCH (08:27)
[2019-10-04] MEDS: ARTIFICAL TEARS SOL 15 ML OP SCH ×2 (08:28→19:25)
[2019-10-04] MEDS: ENOXAPARIN SODIUM 40 MG/0.4 ML SYRINGE SQ SCH ×2 (08:28→20:54)
[2019-10-04] MEDS: ENOXAPARIN SODIUM 80 MG/0.8 ML SQ SCH ×2 (08:28→19:26)
[2019-10-04 11:30] VITALS: BP 119/77
[2019-10-04 15:30] VITALS: BP 147/87
--- NOTE | 2019-10-04 17:57 | NUR ---
PT AAOx3. ABLE TO MAKE NEEDS KNOWN. COVID+, ISOLATION PRECAUTIONS MAINTAINED. ST ON TELE. O2 SAT 88-89% ON 100% NRB AND HIGH FLOW NASAL CANNULA 50L. PT STATED, "I'M TIRED, BUT I'M TRYING." STRONGLY ENCOURAGE TO PRONE, BUT REFUSED. RESPIRATORY THERAPIST NOTIFIED, KAMI, NOTIFIED TO COME ASSESS PT'S O2 STATUS. HIGH FLOW NASAL CANNULA INCREASED TO 70L PER RECOMMENDATIONS OF RT. O2 SAT UP TO 90%. WILL CONTINUE TO MONITOR. SAFETY MEASURES IN PLACE.
[2019-10-04 19:00] VITALS: BP 108/62
[2019-10-04] MEDS: ATORVASTATIN CALCIUM 10 MG TABLET PO SCH (20:53)
[2019-10-04 23:00] VITALS: BP 109/67
[2019-10-05] MEDS: SODIUM CHLORIDE 45 ML SPRY NS SCH ×11 (02:38→22:30)
[2019-10-05 03:00] VITALS: BP 108/60
[2019-10-05] MEDS: LEVOTHYROXINE 50 MCG TABLET PO SCH (05:19)
[2019-10-05 08:00] VITALS: BP 111/68
[2019-10-05] MEDS: ARTIFICAL TEARS SOL 15 ML OP SCH ×2 (08:39→21:02)
[2019-10-05] MEDS: ENOXAPARIN SODIUM 80 MG/0.8 ML SQ SCH (08:39)
[2019-10-05] MEDS: ASCORBIC ACID 500 MG TAB PO SCH (08:58)
[2019-10-05] MEDS: CETIRIZINE HCL 5 MG TABLET PO SCH (08:58)
[2019-10-05] MEDS: FAMOTIDINE/PF 20 MG/2 ML VIAL IV SCH ×2 (08:58→20:50)
[2019-10-05] MEDS: MULTIVITAMIN WITH MINERALS TABLET PO SCH (08:58)
[2019-10-05] MEDS: FUROSEMIDE 20 MG TABLET PO SCH (08:59)
[2019-10-05] MEDS: ZINC SULFATE 220 CAPSULE PO SCH (08:59)
[2019-10-05] MEDS: METOPROLOL TARTRATE 25 MG TAB PO SCH ×2 (08:59→20:50)
[2019-10-05] MEDS: ENOXAPARIN SODIUM 40 MG/0.4 ML SYRINGE SQ SCH ×2 (08:59→20:53)
[2019-10-05 11:30] VITALS: BP 124/63
[2019-10-05 15:30] VITALS: BP 124/72
[2019-10-05 19:18] VITALS: BP 113/74
[2019-10-05] MEDS: ATORVASTATIN CALCIUM 10 MG TABLET PO SCH (20:50)
[2019-10-05 23:36] VITALS: BP 120/69
[2019-10-06] MEDS: SODIUM CHLORIDE 45 ML SPRY NS SCH ×12 (00:30→23:59)
[2019-10-06 03:13] VITALS: BP 92/56
[2019-10-06] MEDS: LEVOTHYROXINE 50 MCG TABLET PO SCH (06:46)
[2019-10-06] MEDS: ARTIFICAL TEARS SOL 15 ML OP SCH (07:53)
[2019-10-06 08:00] VITALS: BP 120/80
[2019-10-06 08:18] LABS: BASOPHILS % (AUTO) 0.3 % (0.0-5.0); EOSINOPHILS % (AUTO) 5.4 % (0.0-8.0); HEMATOCRIT 40.3 % (36-48); LYMPHOCYTES % (AUTO) 7.7 % (21.0-51.0); MEAN CORPUSCULAR HEMOGLOBIN 29.7 pg (27.0-33.0); MEAN CORPUSCULAR HGB CONC 33.5 g/dL (32.0-36.0); MEAN CORPUSCULAR VOLUME 88.8 fL (79-99); MONOCYTES % (AUTO) 3.6 % (3.0-13.0); NEUTROPHILS % (AUTO) 82.6 % (40.0-77.0); PLATELET COUNT (AUTO) 357 K/uL (130-400); RED BLOOD CELL COUNT(AUTO) 4.54 MIL/uL (4.00-5.50); RED CELL DISTRIBUTION WIDTH 13.9 % (11.0-15.5); WHITE BLOOD COUNT (AUTO) 12.9 K/uL (4.8-10.8)
[2019-10-06 09:19] LABS: ABG BASE EXCESS 5.3 mmol/L (-2.0-3.0); ABG HCO3 29.7 mmol/L (21.0-28.0); ABG OXYGEN SATURATION 90.1 % (95.0-99.0); ABG PCO2 42 mmHg (32-45)
[2019-10-06] MEDS: FAMOTIDINE/PF 20 MG/2 ML VIAL IV SCH ×2 (09:37→21:03)
[2019-10-06] MEDS: ENOXAPARIN SODIUM 40 MG/0.4 ML SYRINGE SQ SCH ×2 (09:38→21:03)
[2019-10-06] MEDS: ZINC SULFATE 220 CAPSULE PO SCH (09:40)
[2019-10-06] MEDS: ASCORBIC ACID 500 MG TAB PO SCH (09:41)
[2019-10-06] MEDS: MULTIVITAMIN WITH MINERALS TABLET PO SCH (09:41)
[2019-10-06] MEDS: CETIRIZINE HCL 5 MG TABLET PO SCH (09:41)
[2019-10-06] MEDS: FUROSEMIDE 20 MG TABLET PO SCH (09:41)
[2019-10-06] MEDS: METOPROLOL TARTRATE 25 MG TAB PO SCH ×2 (09:41→21:02)
[2019-10-06 10:07] LABS: ALBUMIN 2.1 g/dL (3.5-5.0); BILIRUBIN,TOTAL 0.5 mg/dL (0.2-1.0); CREATININE 0.6 mg/dL (0.5-1.5); POTASSIUM 3.9 mmol/L (3.5-5.1); TOTAL PROTEIN, SERUM 6.4 g/dL (6.0-8.3)
[2019-10-06 11:30] VITALS: BP 128/63
[2019-10-06 15:30] VITALS: BP 121/74
[2019-10-06] MEDS ORDERED: ZIPRASIDONE MESYLATE 20 MG/VIAL IM SCH (18:45)
--- NOTE | 2019-10-06 18:55 | NUR ---
Pt with intermittent anxiety. O2 sats maintained 88% to 92% when pt is calm, but when feeling anxious, sats 85%-88%. Pt requesting anxiety medication. Reported to SANDRA Tovar for [employer]. Rec'd orders for geodon 20 mg im once, but pt scared to take it; states "I'm very sensitive" (to medication). Pt wishes to call niece and find out what she has taken successfully for anxiety in the past, will notify nurse when she knows.
--- NOTE | 2019-10-06 19:10 | NUR ---
Pt states takes sertraline at home for anxiety, requesting that instead of geodon. SANDRA Askew, who is now chain person for [employer], paged now. Also, pt was strongly encouraged to prone to increase oxygenation, but refused. She says "Tomorrow." Awaiting ariadna back.
[2019-10-06 19:40] VITALS: BP_SYST 116; BP_SYST 123; BP_DIAS 69; BP_DIAS 97
[2019-10-06] MEDS ORDERED: ALLOPURINOL 100 MG TABLET ONE (20:17)
[2019-10-06] MEDS ORDERED: SERTRALINE HCL 50 MG TABLET ONE (20:19)
[2019-10-06] MEDS: ATORVASTATIN CALCIUM 10 MG TABLET PO SCH (21:02)
[2019-10-06] MEDS: SERTRALINE HCL 50 MG TABLET PO SCH (21:02)
[2019-10-06 23:35] VITALS: BP 110/65
[2019-10-07 03:19] VITALS: BP 123/73
[2019-10-07] MEDS: SODIUM CHLORIDE 45 ML SPRY NS SCH ×10 (04:00→21:42)
[2019-10-07 04:07] LABS: ABG BASE EXCESS 4.9 mmol/L (-2.0-3.0); ABG HCO3 29.2 mmol/L (21.0-28.0); ABG OXYGEN SATURATION 90.3 % (95.0-99.0); ABG PCO2 42 mmHg (32-45)
[2019-10-07] MEDS: LEVOTHYROXINE 50 MCG TABLET PO SCH (05:01)
[2019-10-07 05:22] LABS: PHOSPHORUS 3.4 mg/dL (2.5-4.9)
[2019-10-07 08:00] VITALS: BP 122/64
[2019-10-07] MEDS: CETIRIZINE HCL 5 MG TABLET PO SCH (08:54)
[2019-10-07] MEDS: ASCORBIC ACID 500 MG TAB PO SCH ×3 (08:54→21:00)
[2019-10-07] MEDS: METOPROLOL TARTRATE 25 MG TAB PO SCH ×2 (08:54→21:41)
[2019-10-07] MEDS: FUROSEMIDE 20 MG TABLET PO SCH (08:54)
[2019-10-07] MEDS: ZINC SULFATE 220 CAPSULE PO SCH (08:54)
[2019-10-07] MEDS: MULTIVITAMIN WITH MINERALS TABLET PO SCH (08:54)
[2019-10-07] MEDS: FAMOTIDINE/PF 20 MG/2 ML VIAL IV SCH ×2 (08:55→21:39)
[2019-10-07] MEDS: ENOXAPARIN SODIUM 40 MG/0.4 ML SYRINGE SQ SCH ×2 (08:55→21:41)
[2019-10-07 11:30] VITALS: BP 105/62
[2019-10-07 15:30] VITALS: BP 121/75
--- NOTE | 2019-10-07 18:07 | NUR ---
PT AAOx3, LYING IN BED AT THIS TIME IN NO APPARENT DISTRESS. ABLE TO MAKE NEEDS KNOWN. COVID+, ISOLATION PRECAUTIONS MAINTAINED. SR-ST ON TELE. O2 SAT 91-93% AT REST ON 100% NRB AND HIGH FLOW NASAL CANNULA 70L. O2 SATS DECREASES IN THE LOW 80'S WITH MINIMUM ACTIVITY OR WITH ANXIETY. STRONGLY ENCOURAGE TO PRONE RECOMMENDED, BUT REFUSES. INDWELLING CATHETER IN PLACE, PATENT, DRAINING ELVIRA COLOR URINE. DENIED ANY PAIN. WILL CONTINUE TO MONITOR. SAFETY MEASURES IN PLACE.
[2019-10-07 19:44] VITALS: BP 126/81
[2019-10-07] MEDS: ATORVASTATIN CALCIUM 10 MG TABLET PO SCH (21:41)
[2019-10-07 23:26] VITALS: BP 105/63
[2019-10-08] MEDS: SODIUM CHLORIDE 45 ML SPRY NS SCH ×13 (00:30→23:33)
[2019-10-08 03:16] VITALS: BP 123/71
[2019-10-08] MEDS: LEVOTHYROXINE 50 MCG TABLET PO SCH (05:29)
[2019-10-08 08:00] VITALS: BP 131/88
[2019-10-08] MEDS: SERTRALINE HCL 50 MG TABLET PO SCH (09:00)
[2019-10-08] MEDS: MULTIVITAMIN WITH MINERALS TABLET PO SCH (09:48)
[2019-10-08] MEDS: CETIRIZINE HCL 5 MG TABLET PO SCH (09:48)
[2019-10-08] MEDS: ZINC SULFATE 220 CAPSULE PO SCH (09:49)
[2019-10-08] MEDS: FAMOTIDINE/PF 20 MG/2 ML VIAL IV SCH ×2 (09:49→22:01)
[2019-10-08] MEDS: FUROSEMIDE 20 MG TABLET PO SCH (09:49)
[2019-10-08] MEDS: METOPROLOL TARTRATE 25 MG TAB PO SCH ×2 (09:49→22:02)
[2019-10-08] MEDS: ASCORBIC ACID 500 MG TAB PO SCH ×2 (09:49→22:02)
[2019-10-08] MEDS: ENOXAPARIN SODIUM 40 MG/0.4 ML SYRINGE SQ SCH ×2 (09:50→22:01)
--- NOTE | 2019-10-08 10:01 | NUR ---
DC PLAN RECEIVED ORDER FOR LTAC VS IRU. PATIENT ON NRB 15 TO HIGH HAILEE NC AT 70 - 60. NOT STABLE FOR REFERRAL CM WILL CONTINUE TO MONITOR. Addendum: 10/08/19 at 1002 by TIMO ORDAZ RN CM Amended: Links added.
[2019-10-08 11:30] VITALS: BP 140/82
[2019-10-08 15:30] VITALS: BP 121/86
--- NOTE | 2019-10-08 16:35 | NUR ---
RESTING IN BED AT THIS TIME IN NO APPARENT DISTRESS. ISOLATION PRECAUTIONS MAINTAINED. SR-ST ON TELE. O2 SAT 92-94% AT REST ON 100% NRB AND HIGH FLOW NASAL CANNULA 70L. O2 SATS DECREASES IN THE LOW 80'S WITH MINIMUM ACTIVITY OR WITH ANXIETY. PT REPORTS FEELING MUCH WEAKER AND TIRED THAN BEFORE. INDWELLING CATHETER IN PLACE, PATENT, DRAINING ELVIRA COLOR URINE. DENIED ANY PAIN. WILL CONTINUE TO MONITOR. SAFETY MEASURES IN PLACE.
[2019-10-08 19:38] VITALS: BP 121/79
[2019-10-08] MEDS: ATORVASTATIN CALCIUM 10 MG TABLET PO SCH (22:02)
[2019-10-08 23:07] VITALS: BP 107/68
[2019-10-09] MEDS: SODIUM CHLORIDE 45 ML SPRY NS SCH ×11 (01:45→20:43)
[2019-10-09 03:40] VITALS: BP 113/66
[2019-10-09 04:59] LABS: BASOPHILS % (AUTO) 0.3 % (0.0-5.0); EOSINOPHILS % (AUTO) 3.8 % (0.0-8.0); HEMATOCRIT 39.5 % (36-48); MEAN CORPUSCULAR HEMOGLOBIN 29.6 pg (27.0-33.0); MEAN CORPUSCULAR HGB CONC 33.7 g/dL (32.0-36.0); MONOCYTES % (AUTO) 4.5 % (3.0-13.0); NEUTROPHILS % (AUTO) 81.9 % (40.0-77.0); PLATELET COUNT (AUTO) 484 K/uL (130-400); RED BLOOD CELL COUNT(AUTO) 4.49 MIL/uL (4.00-5.50); RED CELL DISTRIBUTION WIDTH 14.1 % (11.0-15.5); WHITE BLOOD COUNT (AUTO) 12.8 K/uL (4.8-10.8)
[2019-10-09 05:27] LABS: CREATININE 0.6 mg/dL (0.5-1.5); POTASSIUM 3.5 mmol/L (3.5-5.1)
[2019-10-09] MEDS: LEVOTHYROXINE 50 MCG TABLET PO SCH (05:40)
[2019-10-09 08:00] VITALS: BP 128/82
[2019-10-09] MEDS: FAMOTIDINE/PF 20 MG/2 ML VIAL IV SCH ×2 (09:24→20:42)
[2019-10-09] MEDS: MULTIVITAMIN WITH MINERALS TABLET PO SCH (09:24)
[2019-10-09] MEDS: ZINC SULFATE 220 CAPSULE PO SCH (09:24)
[2019-10-09] MEDS: FUROSEMIDE 20 MG TABLET PO SCH (09:24)
[2019-10-09] MEDS: POTASSIUM CHLORIDE 20 MEQ ERTAB PO PRN (09:24)
[2019-10-09] MEDS: ASCORBIC ACID 500 MG TAB PO SCH ×2 (09:24→20:42)
[2019-10-09] MEDS: CETIRIZINE HCL 5 MG TABLET PO SCH (09:24)
[2019-10-09] MEDS: ENOXAPARIN SODIUM 40 MG/0.4 ML SYRINGE SQ SCH ×2 (09:25→20:43)
[2019-10-09] MEDS: METOPROLOL TARTRATE 25 MG TAB PO SCH ×2 (09:25→20:42)
[2019-10-09 11:30] VITALS: BP 113/52
[2019-10-09 15:30] VITALS: BP 125/67
[2019-10-09 19:00] VITALS: BP 123/67
[2019-10-09 23:00] VITALS: BP 119/72
[2019-10-10] MEDS: SODIUM CHLORIDE 45 ML SPRY NS SCH ×12 (00:07→22:15)
[2019-10-10 03:52] VITALS: BP 136/78
[2019-10-10 04:45] LABS: ABG HCO3 30.5 mmol/L (21.0-28.0); ABG OXYGEN SATURATION 86.3 % (95.0-99.0); ABG PCO2 43 mmHg (32-45)
[2019-10-10 05:01] LABS: ALBUMIN 2.1 g/dL (3.5-5.0); BILIRUBIN,TOTAL 0.5 mg/dL (0.2-1.0); CREATININE 0.5 mg/dL (0.5-1.5); MAGNESIUM 1.9 mg/dL (1.80-2.40); PHOSPHORUS 2.6 mg/dL (2.5-4.9); POTASSIUM 3.7 mmol/L (3.5-5.1); TOTAL PROTEIN, SERUM 7.1 g/dL (6.0-8.3)
[2019-10-10 07:00] VITALS: BP 109/74
[2019-10-10] MEDS ORDERED: LORATADINE 10 MG TABLET PO SCH (07:30)
[2019-10-10] MEDS: FAMOTIDINE 20MG TAB 20 MG TAB PO SCH ×2 (10:00→22:14)
[2019-10-10] MEDS: CETIRIZINE HCL 5 MG TABLET PO SCH (10:00)
[2019-10-10] MEDS: ASCORBIC ACID 500 MG TAB PO SCH ×2 (10:00→22:14)
[2019-10-10] MEDS: SERTRALINE HCL 50 MG TABLET PO SCH (10:00)
[2019-10-10] MEDS: METOPROLOL TARTRATE 25 MG TAB PO SCH ×2 (10:00→22:15)
[2019-10-10] MEDS: MULTIVITAMIN WITH MINERALS TABLET PO SCH (10:01)
[2019-10-10] MEDS: FUROSEMIDE 20 MG TABLET PO SCH (10:02)
[2019-10-10] MEDS: ENOXAPARIN SODIUM 40 MG/0.4 ML SYRINGE SQ SCH ×2 (10:02→22:14)
[2019-10-10] MEDS: ZINC SULFATE 220 CAPSULE PO SCH (10:03)
[2019-10-10 11:00] VITALS: BP 121/57
[2019-10-10 16:00] VITALS: BP 126/81
[2019-10-10 20:54] VITALS: BP 134/72
[2019-10-10 23:58] VITALS: BP 110/68
[2019-10-11] VITALS (25 sets, daily range): BP systolic 84–167; BP diastolic 50–101
[2019-10-11] MEDS: SODIUM CHLORIDE 45 ML SPRY NS SCH ×12 (00:14→22:30)
[2019-10-11] MEDS: ENOXAPARIN SODIUM 40 MG/0.4 ML SYRINGE SQ SCH (09:54)
[2019-10-11] MEDS: CETIRIZINE HCL 5 MG TABLET PO SCH (09:55)
[2019-10-11] MEDS: METOPROLOL TARTRATE 25 MG TAB PO SCH ×2 (09:55→21:00)
[2019-10-11] MEDS: ZINC SULFATE 220 CAPSULE PO SCH (09:55)
[2019-10-11] MEDS: ASCORBIC ACID 500 MG TAB PO SCH ×2 (09:55→21:00)
[2019-10-11] MEDS: FAMOTIDINE 20MG TAB 20 MG TAB PO SCH ×2 (09:55→21:00)
[2019-10-11] MEDS: MULTIVITAMIN WITH MINERALS TABLET PO SCH (09:55)
[2019-10-11] MEDS: FUROSEMIDE 20 MG TABLET PO SCH (09:55)
[2019-10-11] MEDS ORDERED: TRAZODONE HCL 50 MG TAB PO PRN (11:45)
--- NOTE | 2019-10-11 12:00 | NUR ---
PATIENT WITH INCREASING ANXIETY. RESPIRATIONS SHALLOW AND LABORED. PLACED ON BI-PAP PER RT PER DR. HOOVER'S ORDERS. O2 SAT IN THE 80'S. HEART RATE 130'S. WILL CONTINUE TO MONITOR.
--- NOTE | 2019-10-11 12:45 | NUR ---
ATIVAN 1 MG IVP ADMINISTERED FOR INCREASING ANXIETY. PT VERBALIZED FEAR OF DYING AND REQUESTED TO SEE SON. CHARGE NURSE AND GOLD LETTERER MADE AWARE OF PT'S REQUEST. DR. HOOVER NOTIFIED VIA PHONE OF PT'S INCREASING ANXIETY, INCREASING HEART RATE AND O2 SAT IN THE 80's ON CURRENT BI-PAP SETTINGS. DR. HOOVER STATED, "I WILL BE TO ASSESS HER IN ABOUT 15 TO 20 MINUTES."
[2019-10-11] MEDS ORDERED: LORAZEPAM 2 MG/ML 1 ML VIAL IVP ONE (13:15)
[2019-10-11] MEDS ORDERED: MIDAZOLAM 50MG-0.9% NS 50ML 50 ML BAG IV SCH (13:30)
[2019-10-11] MEDS ORDERED: FENTANYL 2500MCG+NS 250ML 250 ML IV ONE (13:32)
[2019-10-11] MEDS ORDERED: SODIUM CHLORIDE 0.9% 1000ML 1,000 ML IV ONE ×2 (13:43→16:37)
[2019-10-11] MEDS: ARTIFICIAL TEARS 3.5 GM OINTMENT OU SCH ×2 (13:45→19:45)
[2019-10-11] MEDS: CHLORHEXIDINE GLUCONATE 473 ML MOUTHWASH MM SCH ×2 (13:50→21:00)
--- NOTE | 2019-10-11 14:00 | NUR ---
RESPIRATORY DISTRESS ONGOING, HEART RATE 150's, O2 SAT 80's. DR. HOOVER DISCUSSED INTUBATION WITH PT, PT AGREED. ETOMIDATE 20 MG IVP AND ROCURONIUM 50 MG IVP ADMINISTERED PER ANALYSIS SPECIALIST FOR SEDATION PRIOR INTUBATION. SUCCESSFULLY INTUBATED PER DR. HOOVER AT 13:44, ORAL ET TUBE 7.5 AT 25 CM TO RIGHT OF MOUTH AND SECURED. SEE VENT SETTINGS. FENTANYL GTT AND VERSED GTT HUNG PER ANALYSIS SPECIALIST. BLOOD PRESSURE 80/50, NS BOLUS ADMINISTERED ORDERED PER DR. HOOVER.
[2019-10-11 15:09] LABS: ABG BASE EXCESS 1.4 mmol/L (-2.0-3.0); ABG HCO3 29.8 mmol/L (21.0-28.0); ABG OXYGEN SATURATION 93.8 % (95.0-99.0); ABG PCO2 64 mmHg (32-45)
--- NOTE | 2019-10-11 16:35 | NUR ---
VERBAL REPORT ENDORSED TO ABDOUL SHEET TESTER. PT TRANSFERRED TO ICU PER ICU STAFF AND RT.
--- NOTE | 2019-10-11 16:50 | NUR ---
TELEPHONE CONSENT OBTAINED FROM PT'S SON, ROYER ROJO, FOR INSERTION OF PICC LINE ACCESS.
[2019-10-11] MEDS: PHENYLEPHRINE HCL 50 MG in SODIUM CHLORIDE 0.9% 250 ML IV PRN (17:27)
[2019-10-11 17:34] LABS: INR 1.25 (0.85-1.15); PROTHROMBIN TIME 13.4 SEC (9.6-11.6)
--- NOTE | 2019-10-11 18:06 | NUR ---
Transfer Note Received pt via bed to unit, escorted by nursing staff and RT. Pt doesn't appear to be in any respiratory distressbut remains hypotensive. Kelvin implemented per protocol. Along with Fentanyl and Versed. HR holding at 77 with O2 sats at 100%. Attempting PICC line placement at this time.
--- NOTE | 2019-10-11 19:34 | NUR ---
6 FR. 3 LUMEN PICC INSERTED TO RIGHT BASILIC VEIN, USING ASEPTIC TECHNIQUE.TWO CHEST XRAYS TAKEN. PICC PULLED BACK TO 35 CM INTERNALLY (15 CM EXTERNAL) AFTER FIRST XRAY NOTED CATHETER TOO FAR IN, PENDING RADIOLOGIST CONFIRMATION OF TIP PLACEMENT FOR OK TO USE. RN AWARE. ALL THREE LUMENS HAD GOOD BLOOD RETURN AND FLUSHED EASILY AND CLAMPED. ARM CIRCUMFERENCE 40CM.
[2019-10-11] MEDS: ENOXAPARIN SODIUM 80 MG/0.8 ML SQ SCH (21:42)
[2019-10-12] VITALS (28 sets, daily range): BP systolic 77–106; BP diastolic 46–67
[2019-10-12] MEDS: MIDAZOLAM 100MG-0.9% NS 100ML 100 ML IV SCH ×3 (00:01→15:54)
[2019-10-12] MEDS: SODIUM CHLORIDE 45 ML SPRY NS SCH ×7 (00:30→22:30)
[2019-10-12] MEDS: ARTIFICIAL TEARS 3.5 GM OINTMENT OU SCH ×3 (01:45→19:45)
[2019-10-12] MEDS ORDERED: 1/2 NORMAL SALINE 1,000 ML IV ONE (04:27)
[2019-10-12] MEDS ORDERED: SODIUM CHLORIDE 0.9% 500ML 500 ML IV SCH (04:30)
[2019-10-12 04:36] LABS: HEMATOCRIT 36.5 % (36-48); MEAN CORPUSCULAR HEMOGLOBIN 29.8 pg (27.0-33.0); MEAN CORPUSCULAR HGB CONC 33.7 g/dL (32.0-36.0); MEAN CORPUSCULAR VOLUME 88.4 fL (79-99); RED BLOOD CELL COUNT(AUTO) 4.13 MIL/uL (4.00-5.50); RED CELL DISTRIBUTION WIDTH 14.5 % (11.0-15.5); WHITE BLOOD COUNT (AUTO) 15.4 K/uL (4.8-10.8)
[2019-10-12] MEDS ORDERED: SODIUM CHLORIDE 0.9% 1000ML 1,000 ML IV ONE (05:21)
[2019-10-12 07:00] LABS: ALBUMIN 1.8 g/dL (3.5-5.0); BILIRUBIN,TOTAL 0.4 mg/dL (0.2-1.0); CREATININE 0.6 mg/dL (0.5-1.5); CRP QUANTITATIVE 111.1 mg/L (0.00-9.0); MAGNESIUM 1.8 mg/dL (1.80-2.40); PHOSPHORUS 2.1 mg/dL (2.5-4.9); POTASSIUM 3.2 mmol/L (3.5-5.1)
[2019-10-12 08:17] LABS: ABG BASE EXCESS 1.2 mmol/L (-2.0-3.0); ABG HCO3 27.3 mmol/L (21.0-28.0); ABG OXYGEN SATURATION 94.8 % (95.0-99.0); ABG PCO2 49 mmHg (32-45)
[2019-10-12] MEDS: ENOXAPARIN SODIUM 80 MG/0.8 ML SQ SCH ×2 (08:33→20:53)
[2019-10-12] MEDS: METOPROLOL TARTRATE 25 MG TAB PO SCH (09:00)
[2019-10-12] MEDS: MULTIVITAMIN WITH MINERALS TABLET PO SCH (09:00)
[2019-10-12] MEDS: CHLORHEXIDINE GLUCONATE 473 ML MOUTHWASH MM SCH ×2 (09:00→20:52)
[2019-10-12] MEDS: ASCORBIC ACID 500 MG TAB PO SCH (09:00)
[2019-10-12] MEDS: FAMOTIDINE 20MG TAB 20 MG TAB PO SCH ×2 (09:00→20:39)
[2019-10-12] MEDS: CETIRIZINE HCL 5 MG TABLET PO SCH (09:00)
[2019-10-12] MEDS: FUROSEMIDE 20 MG TABLET PO SCH (09:00)
[2019-10-12] MEDS: ZINC SULFATE 220 CAPSULE PO SCH (09:00)
[2019-10-12] MEDS ORDERED: NOREPINEPHRINE 4MG/NS 250ML 250 ML IV ONE (09:43)
[2019-10-12] MEDS ORDERED: NOREPINEPHRINE 4MG/NS 250ML 250 ML IV SCH (09:45)
[2019-10-12] MEDS: PHENYLEPHRINE HCL 50 MG in SODIUM CHLORIDE 0.9% 250 ML IV PRN ×3 (10:02→20:49)
[2019-10-12] MEDS ORDERED: IOHEXOL 350 MG/ML 100ML INFUS..BTL IV ONE (11:32)
[2019-10-12] MEDS ORDERED: POTASSIUM CHLORIDE 20 MEQ ERTAB PO PRN (12:30)
[2019-10-12] MEDS ORDERED: LIDOCAINE HCL-MPF 1% 2ML VIAL IV PRN (12:30)
[2019-10-12] MEDS ORDERED: POTASSIUM PHOS 15 mMOL+NS250ML 250 ML IV PRN (12:30)
[2019-10-12] MEDS: HYDROCORTISONE SOD SUCCINATE 100 MG/2 ML VIAL IV SCH ×2 (15:55→18:30)
[2019-10-12] MEDS: FUROSEMIDE 10 MG/ML 2ML VIAL IV SCH (15:55)
[2019-10-12] MEDS: FENTANYL 2500MCG+NS 250ML 250 ML IV SCH (16:22)
--- NOTE | 2019-10-12 17:50 | NUR ---
Shift Note Pt with low grade fever this shift. made rounds and recommendations for plan of care. Levophed initiated for continued low BP and MAP. HR on 90s and 110s. CT scan completed.Pttolerated well. OGT placed and verified. FSG 114 no insulin given. Vent settings /100% Addendum: 10/12/19 at 1755 by JEIMY LINTON RN RN Oral care and bath given. Pt appears to be sedated. Will monitor for use of mittens.
[2019-10-12] MEDS: NOREPINEPHRINE BITARTRATE 8 MG/NS 250ML IV SCH ×2 (20:50)
[2019-10-12] MEDS: INSULIN HUMULIN R 100 UNIT/ML 3ML SQ SCH (20:51)
[2019-10-13] VITALS (68 sets, daily range): BP systolic 84–166; BP diastolic 48–87
[2019-10-13] MEDS: SODIUM CHLORIDE 45 ML SPRY NS SCH ×11 (00:30→20:00)
[2019-10-13] MEDS ORDERED: PHENYLEPHRINE HCL 10 MG/ML 1ML VIAL IV ONE ×3 (01:12→05:47)
[2019-10-13] MEDS: HYDROCORTISONE SOD SUCCINATE 100 MG/2 ML VIAL IV SCH ×5 (01:53→23:25)
[2019-10-13] MEDS: ARTIFICIAL TEARS 3.5 GM OINTMENT OU SCH ×4 (01:53→21:38)
[2019-10-13] MEDS: FUROSEMIDE 10 MG/ML 2ML VIAL IV SCH ×3 (01:55→23:25)
[2019-10-13 04:38] LABS: HEMATOCRIT 37.1 % (36-48); MEAN CORPUSCULAR HEMOGLOBIN 29.6 pg (27.0-33.0); MEAN CORPUSCULAR HGB CONC 33.2 g/dL (32.0-36.0); MEAN CORPUSCULAR VOLUME 89.2 fL (79-99); RED BLOOD CELL COUNT(AUTO) 4.16 MIL/uL (4.00-5.50)
[2019-10-13 05:17] LABS: CREATININE 0.6 mg/dL (0.5-1.5); MAGNESIUM 1.6 mg/dL (1.80-2.40); PHOSPHORUS 2.5 mg/dL (2.5-4.9); POTASSIUM 3.1 mmol/L (3.5-5.1)
[2019-10-13] MEDS: MIDAZOLAM 100MG-0.9% NS 100ML 100 ML IV SCH ×3 (06:18→20:26)
[2019-10-13] MEDS: FENTANYL 2500MCG+NS 250ML 250 ML IV SCH ×2 (06:19→17:01)
[2019-10-13] MEDS: INSULIN HUMULIN R 100 UNIT/ML 3ML SQ SCH ×4 (06:40→21:00)
[2019-10-13] MEDS: MAGNESIUM 2GM PREMIX 50ML 50 ML IV SCH (07:55)
[2019-10-13] MEDS: POTASSIUM CHLORIDE 20MEQ/100ML 100 ML IV PRN (07:56)
[2019-10-13] MEDS: MULTIVITAMIN WITH MINERALS TABLET PO SCH (08:43)
[2019-10-13] MEDS: ZINC SULFATE 220 CAPSULE PO SCH (08:43)
[2019-10-13] MEDS: FAMOTIDINE 20MG TAB 20 MG TAB PO SCH ×2 (08:43→21:48)
[2019-10-13] MEDS: ENOXAPARIN SODIUM 80 MG/0.8 ML SQ SCH ×2 (08:43→21:50)
[2019-10-13] MEDS: SERTRALINE HCL 50 MG TABLET PO SCH (08:44)
[2019-10-13] MEDS: CHLORHEXIDINE GLUCONATE 473 ML MOUTHWASH MM SCH ×2 (08:44→21:00)
[2019-10-13] MEDS: PHENYLEPHRINE HCL 50 MG in SODIUM CHLORIDE 0.9% 250 ML IV PRN ×4 (08:46→19:36)
[2019-10-13] MEDS ORDERED: ACETAMINOPHEN ELIXIR 650 MG/20.3 ML UDCUP ONE (09:01)
[2019-10-13] MEDS: POTASSIUM CHLORIDE 10% ELIXIR 20 MEQ/15 ML UDCUP PO PRN ×4 (10:28→17:49)
--- NOTE | 2019-10-13 10:36 | NUR ---
RD FOLLOW UP Tube feeding notification received. Recommend Initiate Vital AF 1.2 @15mls/hr. Goal Rate 40mls/hr. Recommend flushes at 130 Q6hrs. Recommendations faxed to 2C. Attempt to notify 2CV & 2C - No answer. NUTRITION NOTE Pt with decreased PO intake. Respiratory failure, mechanical ventilation and sedation. Pending Tube Feeding. RD to continue to monitor.
[2019-10-13] MEDS: NOREPINEPHRINE BITARTRATE 8 MG/NS 250ML IV SCH ×2 (11:14)
--- NOTE | 2019-10-13 12:00 | NUR ---
RD UPDATE Re-Attempt to contact 2C, 2CV - No answer. Tube feeding Recommendation receipt not verified. RD to continue to follow up.
[2019-10-13 12:54] LABS: MAGNESIUM 2.1 mg/dL (1.80-2.40); POTASSIUM 3.3 mmol/L (3.5-5.1)
[2019-10-13] MEDS: ACETAMINOPHEN ELIXIR 650 MG/20.3 ML UDCUP PEG PRN ×2 (13:27→23:55)
[2019-10-13 16:50] LABS: ABG BASE EXCESS -0.1 mmol/L (-2.0-3.0); ABG HCO3 24.4 mmol/L (21.0-28.0); ABG OXYGEN SATURATION 97.8 % (95.0-99.0); ABG PCO2 39 mmHg (32-45)
--- NOTE | 2019-10-13 17:20 | NUR ---
Dr Strickland present at nurses station, made aware about latest ABG results, no new orders given.
[2019-10-13] MEDS: LORATADINE 10 MG TABLET PO SCH (21:48)
[2019-10-14] VITALS (85 sets, daily range): BP systolic 101–168; BP diastolic 55–84
[2019-10-14] MEDS: SODIUM CHLORIDE 45 ML SPRY NS SCH ×12 (00:22→23:52)
[2019-10-14] MEDS: PHENYLEPHRINE HCL 50 MG in SODIUM CHLORIDE 0.9% 250 ML IV PRN ×4 (00:22→17:47)
[2019-10-14] MEDS: FENTANYL 2500MCG+NS 250ML 250 ML IV SCH ×2 (01:41→13:25)
[2019-10-14] MEDS: ARTIFICIAL TEARS 3.5 GM OINTMENT OU SCH ×4 (02:26→21:03)
[2019-10-14 03:56] LABS: HEMATOCRIT 34.4 % (36-48); MEAN CORPUSCULAR HEMOGLOBIN 29.5 pg (27.0-33.0); MEAN CORPUSCULAR HGB CONC 33.1 g/dL (32.0-36.0); MEAN CORPUSCULAR VOLUME 89.1 fL (79-99); RED BLOOD CELL COUNT(AUTO) 3.86 MIL/uL (4.00-5.50); RED CELL DISTRIBUTION WIDTH 15.3 % (11.0-15.5); WHITE BLOOD COUNT (AUTO) 16.8 K/uL (4.8-10.8)
[2019-10-14 04:09] LABS: CREATININE 0.6 mg/dL (0.5-1.5); PHOSPHORUS 1.9 mg/dL (2.5-4.9); POTASSIUM 3.1 mmol/L (3.5-5.1)
[2019-10-14] MEDS: HYDROCORTISONE SOD SUCCINATE 100 MG/2 ML VIAL IV SCH ×4 (05:15→23:52)
[2019-10-14] MEDS: MIDAZOLAM 100MG-0.9% NS 100ML 100 ML IV SCH (05:16)
[2019-10-14] MEDS: POTASSIUM CHLORIDE 10% ELIXIR 20 MEQ/15 ML UDCUP PO PRN ×3 (05:21→09:24)
[2019-10-14] MEDS: INSULIN HUMULIN R 100 UNIT/ML 3ML SQ SCH ×4 (06:36→21:00)
[2019-10-14 07:07] LABS: ABG BASE EXCESS 4.8 mmol/L (-2.0-3.0); ABG HCO3 30.7 mmol/L (21.0-28.0); ABG OXYGEN SATURATION 93.9 % (95.0-99.0); ABG PCO2 50 mmHg (32-45)
[2019-10-14] MEDS: CHLORHEXIDINE GLUCONATE 473 ML MOUTHWASH MM SCH ×2 (08:24→21:00)
[2019-10-14] MEDS: FAMOTIDINE 20MG TAB 20 MG TAB PO SCH ×2 (08:24→22:23)
[2019-10-14] MEDS: MULTIVITAMIN WITH MINERALS TABLET PO SCH (08:24)
[2019-10-14] MEDS: ZINC SULFATE 220 CAPSULE PO SCH (08:24)
[2019-10-14] MEDS: LORATADINE 10 MG TABLET PO SCH ×2 (08:24→22:23)
[2019-10-14] MEDS: ENOXAPARIN SODIUM 80 MG/0.8 ML SQ SCH ×2 (08:25→22:23)
--- NOTE | 2019-10-14 09:50 | NUR ---
ELLIOTT CastroP at bedside, updated with latest ABG results, no new orders given at this time
[2019-10-14] MEDS: FUROSEMIDE 10 MG/ML 2ML VIAL IV SCH ×2 (11:46→23:51)
--- NOTE | 2019-10-14 14:20 | NUR ---
DR Strickland at bedside to assess patient, decreased Tidal Volume to 360. New orders given to repeat ABGs in 1 hour.
[2019-10-14 15:28] LABS: ABG BASE EXCESS 6.5 mmol/L (-2.0-3.0); ABG HCO3 32.9 mmol/L (21.0-28.0); ABG OXYGEN SATURATION 97.3 % (95.0-99.0); ABG PCO2 54 mmHg (32-45)
[2019-10-15] VITALS (76 sets, daily range): BP systolic 84–186; BP diastolic 45–104
[2019-10-15] MEDS: ARTIFICIAL TEARS 3.5 GM OINTMENT OU SCH ×4 (01:07→21:18)
[2019-10-15] MEDS: SODIUM CHLORIDE 45 ML SPRY NS SCH ×12 (01:57→23:34)
[2019-10-15] MEDS: FENTANYL 2500MCG+NS 250ML 250 ML IV SCH ×4 (02:11→16:21)
[2019-10-15] MEDS: MIDAZOLAM 100MG-0.9% NS 100ML 100 ML IV SCH (02:12)
[2019-10-15 04:03] LABS: ABG BASE EXCESS 7.7 mmol/L (-2.0-3.0); ABG OXYGEN SATURATION 94.2 % (95.0-99.0); ABG PCO2 60 mmHg (32-45)
--- NOTE | 2019-10-15 04:30 | NUR ---
HR trending into 110s throughout shift and PCO2 on most recent ABG is 60. Discussed w/Dr. Ortiz, requests EKG to evaluate HR and requests tidal volume be increased to 450 and FiO2 back to 100%
[2019-10-15 04:49] LABS: MEAN CORPUSCULAR HEMOGLOBIN 29.6 pg (27.0-33.0); MEAN CORPUSCULAR HGB CONC 32.6 g/dL (32.0-36.0); MEAN CORPUSCULAR VOLUME 90.7 fL (79-99); RED BLOOD CELL COUNT(AUTO) 4.19 MIL/uL (4.00-5.50)
[2019-10-15 05:06] LABS: ALBUMIN 1.9 g/dL (3.5-5.0); BILIRUBIN,TOTAL 0.3 mg/dL (0.2-1.0); CREATININE 0.6 mg/dL (0.5-1.5); MAGNESIUM 1.9 mg/dL (1.80-2.40); PHOSPHORUS 1.5 mg/dL (2.5-4.9); TOTAL PROTEIN, SERUM 6.5 g/dL (6.0-8.3)
[2019-10-15 05:24] LABS: POTASSIUM 2.5 mmol/L (3.5-5.1)
[2019-10-15] MEDS: POTASSIUM CHLORIDE 10% ELIXIR 20 MEQ/15 ML UDCUP PO PRN ×3 (05:50→17:48)
[2019-10-15] MEDS: HYDROCORTISONE SOD SUCCINATE 100 MG/2 ML VIAL IV SCH ×4 (06:02→23:33)
[2019-10-15] MEDS: INSULIN HUMULIN R 100 UNIT/ML 3ML SQ SCH ×4 (06:34→21:00)
[2019-10-15] MEDS: LORATADINE 10 MG TABLET PO SCH ×2 (09:36→21:26)
[2019-10-15] MEDS: SERTRALINE HCL 50 MG TABLET PO SCH (09:36)
[2019-10-15] MEDS: FAMOTIDINE 20MG TAB 20 MG TAB PO SCH ×2 (09:36→21:26)
[2019-10-15] MEDS: CHLORHEXIDINE GLUCONATE 473 ML MOUTHWASH MM SCH ×2 (09:37→21:00)
[2019-10-15] MEDS: ENOXAPARIN SODIUM 80 MG/0.8 ML SQ SCH ×2 (09:37→21:28)
[2019-10-15] MEDS: FUROSEMIDE 10 MG/ML 2ML VIAL IV SCH ×2 (12:58→23:33)
[2019-10-15] MEDS: PHENYLEPHRINE HCL 50 MG in SODIUM CHLORIDE 0.9% 250 ML IV PRN (13:42)
--- NOTE | 2019-10-15 20:00 | NUR ---
HR now as high as 151 and pt also febrile to 101.2 Discussed w/MISSILE CONTROL PILOT White, requests 1L fluid bolus, ABG now, PRN acetaminophen, and urine/blood/and sputum cultures.
[2019-10-15 20:14] LABS: ABG BASE EXCESS 8.9 mmol/L (-2.0-3.0); ABG HCO3 34.7 mmol/L (21.0-28.0); ABG OXYGEN SATURATION 96.6 % (95.0-99.0); ABG PCO2 51 mmHg (32-45)
[2019-10-15] MEDS ORDERED: 0.9% SODIUM CHLORIDE 1000 ML IV BAG IV SCH (20:15)
[2019-10-15] MEDS ORDERED: SODIUM CHLORIDE 0.9% 1000ML 1,000 ML IV ONE (20:16)
[2019-10-15] MEDS: ACETAMINOPHEN ELIXIR 650 MG/20.3 ML UDCUP PEG PRN (20:22)
[2019-10-16] VITALS (54 sets, daily range): BP systolic 82–144; BP diastolic 47–82
[2019-10-16] MEDS: SODIUM CHLORIDE 45 ML SPRY NS SCH ×11 (02:30→22:15)
[2019-10-16 03:31] LABS: ABG BASE EXCESS 7.5 mmol/L (-2.0-3.0); ABG PCO2 49 mmHg (32-45)
[2019-10-16 04:16] LABS: BASOPHILS % (AUTO) 0.1 % (0.0-5.0); EOSINOPHILS % (AUTO) 0.1 % (0.0-8.0); HEMATOCRIT 33.2 % (36-48); LYMPHOCYTES % (AUTO) 7.8 % (21.0-51.0); MEAN CORPUSCULAR HEMOGLOBIN 29.2 pg (27.0-33.0); MEAN CORPUSCULAR HGB CONC 32.5 g/dL (32.0-36.0); MEAN CORPUSCULAR VOLUME 89.7 fL (79-99); MONOCYTES % (AUTO) 4.5 % (3.0-13.0); NEUTROPHILS % (AUTO) 86.7 % (40.0-77.0); PLATELET COUNT (AUTO) 340 K/uL (130-400); RED CELL DISTRIBUTION WIDTH 15.9 % (11.0-15.5); WHITE BLOOD COUNT (AUTO) 11.8 K/uL (4.8-10.8)
[2019-10-16 04:40] LABS: ALBUMIN 1.7 g/dL (3.5-5.0); BILIRUBIN,TOTAL 0.3 mg/dL (0.2-1.0); CREATININE 0.6 mg/dL (0.5-1.5); MAGNESIUM 1.7 mg/dL (1.80-2.40); TOTAL PROTEIN, SERUM 5.6 g/dL (6.0-8.3)
[2019-10-16] MEDS: FENTANYL 2500MCG+NS 250ML 250 ML IV SCH ×2 (04:48→19:28)
[2019-10-16] MEDS: HYDROCORTISONE SOD SUCCINATE 100 MG/2 ML VIAL IV SCH ×3 (05:13→18:05)
[2019-10-16] MEDS: POTASSIUM CHLORIDE 10% ELIXIR 20 MEQ/15 ML UDCUP PO PRN ×4 (05:14→13:42)
[2019-10-16] MEDS: INSULIN HUMULIN R 100 UNIT/ML 3ML SQ SCH ×4 (05:15→21:34)
[2019-10-16] MEDS: ENOXAPARIN SODIUM 80 MG/0.8 ML SQ SCH ×2 (10:18→21:31)
[2019-10-16] MEDS: SERTRALINE HCL 50 MG TABLET PO SCH (10:18)
[2019-10-16] MEDS: FAMOTIDINE 20MG TAB 20 MG TAB PO SCH ×2 (10:19→21:30)
[2019-10-16] MEDS: LORATADINE 10 MG TABLET PO SCH ×2 (10:19→21:30)
[2019-10-16] MEDS: ARTIFICIAL TEARS 3.5 GM OINTMENT OU SCH ×3 (10:33→21:36)
[2019-10-16] MEDS: CHLORHEXIDINE GLUCONATE 473 ML MOUTHWASH MM SCH ×2 (10:33→21:00)
[2019-10-16] MEDS: FUROSEMIDE 10 MG/ML 2ML VIAL IV SCH (11:10)
[2019-10-16] MEDS: ACETAMINOPHEN ELIXIR 650 MG/20.3 ML UDCUP PEG PRN ×3 (12:46→14:49)
[2019-10-16] MEDS: MIDAZOLAM 100MG-0.9% NS 100ML 100 ML IV SCH (16:41)
--- NOTE | 2019-10-16 17:06 | NUR ---
SHIFT NOTE LEVOPHED GTT TURNED OFF APPROX. 1615, WAS AT 0.02MCG. ORAL AIRWAY INSERTED TO STOP PT FROM BITING DOWN ON THE ET TUBE. PT HAS BEEN TURNED Q2HR AND ORAL CARE GIVEN. WILL CONTINUE TO MONITOR CLOSELY.
--- NOTE | 2019-10-16 18:42 | NUR ---
Dr HOOVER PAGED DUE TO VENT ALARMING HIGH INSPIRATORY PRESSURE. PT IS SEDATED, REPOSITIONED, ORAL AIRWAY INSERTED DUE TO POSSIBLY BITING ON TUBE. NO CHANGES. STAT CXR ORDERED AND INCREASED SEDATION. AWAITING ON CXR TO BE DONE AT THIS TIME.
[2019-10-17] VITALS (54 sets, daily range): BP systolic 80–130; BP diastolic 49–80
[2019-10-17] MEDS: PHENYLEPHRINE HCL 50 MG in SODIUM CHLORIDE 0.9% 250 ML IV PRN (00:04)
[2019-10-17] MEDS: FUROSEMIDE 10 MG/ML 2ML VIAL IV SCH ×2 (00:10→12:30)
[2019-10-17] MEDS: ARTIFICIAL TEARS 3.5 GM OINTMENT OU SCH ×4 (00:11→20:53)
[2019-10-17] MEDS: HYDROCORTISONE SOD SUCCINATE 100 MG/2 ML VIAL IV SCH ×4 (00:11→17:01)
[2019-10-17] MEDS: SODIUM CHLORIDE 45 ML SPRY NS SCH ×11 (00:11→22:30)
[2019-10-17 01:00] LABS: ABG BASE EXCESS 8.7 mmol/L (-2.0-3.0); ABG HCO3 34.7 mmol/L (21.0-28.0); ABG OXYGEN SATURATION 97.1 % (95.0-99.0); ABG PCO2 54 mmHg (32-45)
[2019-10-17 04:42] LABS: HEMATOCRIT 33.7 % (36-48); MEAN CORPUSCULAR HEMOGLOBIN 29.5 pg (27.0-33.0); MEAN CORPUSCULAR HGB CONC 31.8 g/dL (32.0-36.0); MEAN CORPUSCULAR VOLUME 92.8 fL (79-99); NUCLEATED RED BLOOD CELLS 0.2 % (0.0-0.19); RED BLOOD CELL COUNT(AUTO) 3.63 MIL/uL (4.00-5.50); RED CELL DISTRIBUTION WIDTH 16.7 % (11.0-15.5); WHITE BLOOD COUNT (AUTO) 19.3 K/uL (4.8-10.8)
[2019-10-17 05:18] LABS: ALBUMIN 1.9 g/dL (3.5-5.0); BILIRUBIN,DIRECT 0.1 mg/dL (0.0-0.3); BILIRUBIN,TOTAL 0.2 mg/dL (0.2-1.0); CREATININE 0.5 mg/dL (0.5-1.5); CRP QUANTITATIVE 14.4 mg/L (0.00-9.0); PHOSPHORUS 1.6 mg/dL (2.5-4.9); POTASSIUM 3.8 mmol/L (3.5-5.1); TOTAL PROTEIN, SERUM 6.1 g/dL (6.0-8.3)
[2019-10-17] MEDS: FENTANYL 2500MCG+NS 250ML 250 ML IV SCH ×2 (06:08→17:33)
[2019-10-17] MEDS: INSULIN HUMULIN R 100 UNIT/ML 3ML SQ SCH ×4 (06:09→20:51)
[2019-10-17] MEDS: MIDAZOLAM 100MG-0.9% NS 100ML 100 ML IV SCH ×2 (06:50→18:11)
--- NOTE | 2019-10-17 07:20 | NUR ---
PROVIDER NOTIFICATION MESSAGED 4316 REGARDING POSITIVE B.C. (1OF2) GRAM POSITIVE COCCI.
[2019-10-17] MEDS ORDERED: VANCOMYCIN PROTOCOL PER PHARMACY IV SCH (07:45)
[2019-10-17] MEDS ORDERED: COMPOUND IV REFRIGERATED 1 EACH IVSOLN MISC PRN (07:45)
[2019-10-17] MEDS: FAMOTIDINE 20MG TAB 20 MG TAB PO SCH ×2 (09:38→20:52)
[2019-10-17] MEDS: LORATADINE 10 MG TABLET PO SCH ×2 (09:39→20:52)
[2019-10-17] MEDS: VANCOMYCIN 1.25 GM in SODIUM CHLORIDE 0.9% 250 ML IV SCH ×2 (09:39→20:55)
[2019-10-17] MEDS: ENOXAPARIN SODIUM 80 MG/0.8 ML SQ SCH ×2 (09:41→20:52)
[2019-10-17] MEDS: CHLORHEXIDINE GLUCONATE 473 ML MOUTHWASH MM SCH ×2 (09:41→20:53)
--- NOTE | 2019-10-17 17:43 | NUR ---
GLUCOSE BLOOD SUGAR IMPROVED AFTER 1AMP D50, RESULTED 170 AT 1742 Addendum: 10/18/19 at 1120 by Renuka Del Rio RN RN ERROR ENTERED ON WRONG PT
[2019-10-17] MEDS ORDERED: ALBUMIN (HUMAN) 5% 250 ML IV SCH (19:30)
[2019-10-17 19:57] LABS: CREATININE 0.5 mg/dL (0.5-1.5); POTASSIUM 3.7 mmol/L (3.5-5.1)
[2019-10-17] MEDS: SODIUM CHLORIDE 0.9% 1000ML 1,000 ML IV SCH ×2 (20:31→20:55)
[2019-10-18] VITALS (45 sets, daily range): BP systolic 79–131; BP diastolic 44–68
[2019-10-18] MEDS: FUROSEMIDE 10 MG/ML 2ML VIAL IV SCH ×2 (00:19→11:39)
[2019-10-18] MEDS: HYDROCORTISONE SOD SUCCINATE 100 MG/2 ML VIAL IV SCH ×4 (00:19→17:11)
[2019-10-18] MEDS: POTASSIUM CHLORIDE 20MEQ/100ML 100 ML IV PRN ×2 (00:20→03:07)
[2019-10-18] MEDS: ARTIFICIAL TEARS 3.5 GM OINTMENT OU SCH ×4 (00:20→20:50)
[2019-10-18] MEDS: SODIUM CHLORIDE 45 ML SPRY NS SCH ×11 (00:29→21:08)
[2019-10-18 03:57] LABS: ABG BASE EXCESS 4.1 mmol/L (-2.0-3.0); ABG HCO3 31.4 mmol/L (21.0-28.0); ABG OXYGEN SATURATION 98.3 % (95.0-99.0); ABG PCO2 58 mmHg (32-45)
[2019-10-18 04:24] LABS: BASOPHILS % (AUTO) 0.1 % (0.0-5.0); HEMATOCRIT 30.7 % (36-48); LYMPHOCYTES % (AUTO) 6.1 % (21.0-51.0); MEAN CORPUSCULAR HEMOGLOBIN 29.4 pg (27.0-33.0); MEAN CORPUSCULAR HGB CONC 30.6 g/dL (32.0-36.0); MEAN CORPUSCULAR VOLUME 95.9 fL (79-99); MONOCYTES % (AUTO) 4.7 % (3.0-13.0); NEUTROPHILS % (AUTO) 87.7 % (40.0-77.0); NUCLEATED RED BLOOD CELLS 0.5 % (0.0-0.19); PLATELET COUNT (AUTO) 322 K/uL (130-400); RED CELL DISTRIBUTION WIDTH 16.7 % (11.0-15.5); WHITE BLOOD COUNT (AUTO) 14.6 K/uL (4.8-10.8)
[2019-10-18 04:51] LABS: PLATELET MORPHOLOGY LARGE PLTS PRESENT
[2019-10-18 05:18] LABS: BILIRUBIN,TOTAL 0.2 mg/dL (0.2-1.0); CREATININE 0.5 mg/dL (0.5-1.5); MAGNESIUM 1.9 mg/dL (1.80-2.40); PHOSPHORUS 2.8 mg/dL (2.5-4.9); POTASSIUM 3.6 mmol/L (3.5-5.1); TOTAL PROTEIN, SERUM 5.5 g/dL (6.0-8.3)
[2019-10-18 08:33] LABS: INR 1.1 (0.85-1.15); PROTHROMBIN TIME 11.8 SEC (9.6-11.6)
[2019-10-18] MEDS: CHLORHEXIDINE GLUCONATE 473 ML MOUTHWASH MM SCH ×2 (08:41→20:51)
[2019-10-18] MEDS: VANCOMYCIN 1.25 GM in SODIUM CHLORIDE 0.9% 250 ML IV SCH ×2 (08:41→21:11)
[2019-10-18] MEDS: INSULIN HUMULIN R 100 UNIT/ML 3ML SQ SCH ×4 (08:42→20:50)
[2019-10-18] MEDS: MIDAZOLAM 100MG-0.9% NS 100ML 100 ML IV SCH (08:42)
[2019-10-18] MEDS: LORATADINE 10 MG TABLET PO SCH ×2 (08:43→21:08)
[2019-10-18] MEDS: ENOXAPARIN SODIUM 80 MG/0.8 ML SQ SCH ×2 (08:46→21:08)
[2019-10-18] MEDS: FAMOTIDINE 20MG TAB 20 MG TAB PO SCH ×2 (08:46→21:08)
[2019-10-18] MEDS: POTASSIUM CHLORIDE 10% ELIXIR 20 MEQ/15 ML UDCUP PO PRN ×2 (08:47→11:33)
[2019-10-18] MEDS ORDERED: ALBUMIN (HUMAN) 25% 0 ML IV ONE (09:59)
[2019-10-18] MEDS: ALBUMIN (HUMAN) 25% 50 ML IV SCH ×2 (11:03→21:07)
--- NOTE | 2019-10-18 11:39 | NUR ---
ALBUMIN INFUSED WILL NOW GIVE LASIX IVP ORDERED
--- NOTE | 2019-10-18 13:18 | NUR ---
ECHO/PICC ECHO COMPLETED AT BEDSIDE. PICC NURSE HERE TO INSERT PICC LINE.
--- NOTE | 2019-10-18 14:44 | NUR ---
6 FR 3 LUMEN PICC INSERTED TO LEFT BASILIC VEIN, USING ASEPTIC TECHNIQUE. PICC WAS LEFT UNCUT WITH 45 CM INTERNAL AND 5 CM EXTERNAL CATHETER. ALL 3 LUMENS HAVE GOOD BLOOD RETURN, FLUSHED EASILY AND CLAMPED. ARM CIRCUMFERENCE IS 35CM. RIGHT ARM PICC WILL BE DISCONTINUED AND TIP SENT FOR CULTURES BY ATTENDING NURSE TO RULE OUT INFECTION.
[2019-10-18] MEDS: FENTANYL 2500MCG+NS 250ML 250 ML IV SCH (17:12)
[2019-10-18] MEDS: ACETAMINOPHEN ELIXIR 650 MG/20.3 ML UDCUP PEG PRN (17:49)
[2019-10-19] VITALS (50 sets, daily range): BP systolic 89–190; BP diastolic 51–87
[2019-10-19] MEDS: HYDROCORTISONE SOD SUCCINATE 100 MG/2 ML VIAL IV SCH ×5 (00:27→23:56)
[2019-10-19] MEDS: FUROSEMIDE 10 MG/ML 2ML VIAL IV SCH ×2 (00:28→12:36)
[2019-10-19] MEDS: SODIUM CHLORIDE 45 ML SPRY NS SCH ×12 (00:30→23:54)
[2019-10-19] MEDS: ARTIFICIAL TEARS 3.5 GM OINTMENT OU SCH ×4 (01:45→19:45)
[2019-10-19] MEDS: MIDAZOLAM 100MG-0.9% NS 100ML 100 ML IV SCH ×2 (02:16→17:03)
[2019-10-19 03:50] LABS: ABG BASE EXCESS 9.5 mmol/L (-2.0-3.0); ABG OXYGEN SATURATION 94.5 % (95.0-99.0); ABG PCO2 142 mmHg (32-45)
[2019-10-19 04:35] LABS: BASOPHILS % (AUTO) 0.2 % (0.0-5.0); HEMATOCRIT 35.8 % (36-48); MEAN CORPUSCULAR HEMOGLOBIN 29.8 pg (27.0-33.0); MEAN CORPUSCULAR HGB CONC 29.9 g/dL (32.0-36.0); MEAN CORPUSCULAR VOLUME 99.7 fL (79-99); MONOCYTES % (AUTO) 4.5 % (3.0-13.0); NUCLEATED RED BLOOD CELLS 0.2 % (0.0-0.19); PLATELET COUNT (AUTO) 361 K/uL (130-400); RED BLOOD CELL COUNT(AUTO) 3.59 MIL/uL (4.00-5.50); RED CELL DISTRIBUTION WIDTH 16.8 % (11.0-15.5); WHITE BLOOD COUNT (AUTO) 20.6 K/uL (4.8-10.8)
[2019-10-19 04:54] LABS: ALBUMIN 2.6 g/dL (3.5-5.0); BILIRUBIN,TOTAL 0.3 mg/dL (0.2-1.0); CREATININE 0.5 mg/dL (0.5-1.5); MAGNESIUM 2.1 mg/dL (1.80-2.40); PHOSPHORUS 3.7 mg/dL (2.5-4.9); POTASSIUM 3.8 mmol/L (3.5-5.1); TOTAL PROTEIN, SERUM 6.7 g/dL (6.0-8.3)
[2019-10-19 06:32] LABS: ABG BASE EXCESS 10.5 mmol/L (-2.0-3.0); ABG HCO3 43.1 mmol/L (21.0-28.0); ABG OXYGEN SATURATION 94.9 % (95.0-99.0); ABG PCO2 106 mmHg (32-45)
[2019-10-19] MEDS: VANCOMYCIN 1.25 GM in SODIUM CHLORIDE 0.9% 250 ML IV SCH ×2 (10:14→21:45)
[2019-10-19] MEDS: ALBUMIN (HUMAN) 25% 50 ML IV SCH ×2 (10:14→23:48)
[2019-10-19] MEDS: CHLORHEXIDINE GLUCONATE 473 ML MOUTHWASH MM SCH ×2 (10:15→21:43)
[2019-10-19] MEDS: ENOXAPARIN SODIUM 80 MG/0.8 ML SQ SCH ×2 (10:15→21:41)
[2019-10-19] MEDS: LORATADINE 10 MG TABLET PO SCH ×2 (10:15→21:41)
[2019-10-19] MEDS: FAMOTIDINE 20MG TAB 20 MG TAB PO SCH ×2 (10:15→21:41)
[2019-10-19] MEDS: INSULIN HUMULIN R 100 UNIT/ML 3ML SQ SCH ×3 (10:17→18:18)
--- NOTE | 2019-10-19 10:45 | NUR ---
Family communication Data Center Architect and Demetrio Montejo NP, spoke with pt's son Cal and his for approximately 30 minutes. SERVICE TRANSFORMER REPAIR SUPERVISOR reviewed all measures taken in past 40 days to treat pt's condition. SERVICE TRANSFORMER REPAIR SUPERVISOR explained in layman's terms that pt has not responded to treatment. SERVICE TRANSFORMER REPAIR SUPERVISOR explained pt's current condition in layman's terms. SERVICE TRANSFORMER REPAIR SUPERVISOR explained per MD request that pt's lungs have suffered severe and permanent damage. SERVICE TRANSFORMER REPAIR SUPERVISOR explained per MD request that best case prognosis for pt is for permanent tracheostomy, mechanical ventilation, tube feeding and transfer to senior living care. Pt's family able to verbalize literal understanding of above information. Pt's family appeared unable to grasp severity of pt's condition, instead responding with questions regarding possible experimental treatments they heard of or read about. Pt's family stated they "want to do everything" because "[they] believe in god and miracles". Per MD request, data analyst report writer explained process of CPR, likely injury to pt, likely futility of process to family with similar response requesting "everything" due to "god and miracles". SERVICE TRANSFORMER REPAIR SUPERVISOR and data analyst report writer assured family that their request for continued aggressive treatment would be respected.
[2019-10-19] MEDS: FENTANYL 2500MCG+NS 250ML 250 ML IV SCH ×2 (12:58→23:45)
--- NOTE | 2019-10-19 17:45 | NUR ---
provider notification pt's increasing heartrate and decreasing SpO2 reported to Demetrio Montejo NP. No new orders.
[2019-10-19] MEDS: ACETAMINOPHEN ELIXIR 650 MG/20.3 ML UDCUP PEG PRN (21:42)
[2019-10-20] VITALS (34 sets, daily range): BP systolic 110–183; BP diastolic 66–100
[2019-10-20] MEDS: FUROSEMIDE 10 MG/ML 2ML VIAL IV SCH ×2 (00:26→11:50)
[2019-10-20] MEDS: SODIUM CHLORIDE 45 ML SPRY NS SCH ×12 (01:28→23:31)
[2019-10-20] MEDS: ARTIFICIAL TEARS 3.5 GM OINTMENT OU SCH ×3 (01:45→13:13)
[2019-10-20] MEDS: MIDAZOLAM 100MG-0.9% NS 100ML 100 ML IV SCH ×2 (02:52→12:47)
[2019-10-20 03:51] LABS: ABG HCO3 41.9 mmol/L (21.0-28.0); ABG OXYGEN SATURATION 87.9 % (95.0-99.0); ABG PCO2 66 mmHg (32-45)
[2019-10-20 05:32] LABS: BASOPHILS % (AUTO) 0.2 % (0.0-5.0); EOSINOPHILS % (AUTO) 0.1 % (0.0-8.0); LYMPHOCYTES % (AUTO) 5.1 % (21.0-51.0); MEAN CORPUSCULAR HEMOGLOBIN 29.5 pg (27.0-33.0); MEAN CORPUSCULAR HGB CONC 30.6 g/dL (32.0-36.0); MEAN CORPUSCULAR VOLUME 96.3 fL (79-99); MONOCYTES % (AUTO) 4.5 % (3.0-13.0); NEUTROPHILS % (AUTO) 88.1 % (40.0-77.0); NUCLEATED RED BLOOD CELLS 0.2 % (0.0-0.19); PLATELET COUNT (AUTO) 347 K/uL (130-400); RED BLOOD CELL COUNT(AUTO) 3.53 MIL/uL (4.00-5.50); RED CELL DISTRIBUTION WIDTH 16.3 % (11.0-15.5); WHITE BLOOD COUNT (AUTO) 20.2 K/uL (4.8-10.8)
[2019-10-20 05:59] LABS: ALBUMIN 2.7 g/dL (3.5-5.0); BILIRUBIN,TOTAL 0.3 mg/dL (0.2-1.0); CREATININE 0.5 mg/dL (0.5-1.5); MAGNESIUM 1.9 mg/dL (1.80-2.40); PHOSPHORUS 1.2 mg/dL (2.5-4.9); POTASSIUM 3.2 mmol/L (3.5-5.1); TOTAL PROTEIN, SERUM 6.3 g/dL (6.0-8.3)
[2019-10-20] MEDS: INSULIN HUMULIN R 100 UNIT/ML 3ML SQ SCH ×4 (06:22→18:27)
[2019-10-20] MEDS: HYDROCORTISONE SOD SUCCINATE 100 MG/2 ML VIAL IV SCH ×3 (06:54→17:23)
[2019-10-20] MEDS: POTASSIUM CHLORIDE 10% ELIXIR 20 MEQ/15 ML UDCUP PO PRN ×2 (06:54→08:45)
[2019-10-20] MEDS: CHLORHEXIDINE GLUCONATE 473 ML MOUTHWASH MM SCH ×2 (08:33→20:58)
[2019-10-20] MEDS: VANCOMYCIN 1.25 GM in SODIUM CHLORIDE 0.9% 250 ML IV SCH ×2 (08:33→21:06)
[2019-10-20] MEDS: LORATADINE 10 MG TABLET PO SCH ×2 (08:34→21:00)
[2019-10-20] MEDS: ENOXAPARIN SODIUM 80 MG/0.8 ML SQ SCH ×2 (08:34→21:01)
[2019-10-20] MEDS: FAMOTIDINE 20MG TAB 20 MG TAB PO SCH ×2 (08:34→20:59)
[2019-10-20] MEDS: SERTRALINE HCL 50 MG TABLET PO SCH (08:34)
[2019-10-20] MEDS: FENTANYL 2500MCG+NS 250ML 250 ML IV SCH ×2 (08:35→18:10)
[2019-10-20] MEDS: ACETAMINOPHEN ELIXIR 650 MG/20.3 ML UDCUP PEG PRN ×2 (13:13→17:13)
[2019-10-20] MEDS: ARTIFICAL TEARS SOL 15 ML OU SCH (21:49)
[2019-10-21] VITALS (61 sets, daily range): BP systolic 96–201; BP diastolic 46–113
[2019-10-21] MEDS: HYDROCORTISONE SOD SUCCINATE 100 MG/2 ML VIAL IV SCH ×4 (00:25→18:46)
[2019-10-21] MEDS: MIDAZOLAM 100MG-0.9% NS 100ML 100 ML IV SCH ×2 (00:25→21:53)
[2019-10-21] MEDS: FUROSEMIDE 10 MG/ML 2ML VIAL IV SCH ×2 (00:26→12:15)
[2019-10-21] MEDS: SODIUM CHLORIDE 45 ML SPRY NS SCH ×10 (01:29→23:46)
[2019-10-21] MEDS: FENTANYL 2500MCG+NS 250ML 250 ML IV SCH (01:29)
[2019-10-21 04:14] LABS: BASOPHILS % (AUTO) 0.1 % (0.0-5.0); HEMATOCRIT 34.2 % (36-48); LYMPHOCYTES % (AUTO) 6.4 % (21.0-51.0); MEAN CORPUSCULAR HEMOGLOBIN 30.1 pg (27.0-33.0); MEAN CORPUSCULAR HGB CONC 31.3 g/dL (32.0-36.0); MEAN CORPUSCULAR VOLUME 96.1 fL (79-99); MONOCYTES % (AUTO) 4.1 % (3.0-13.0); NEUTROPHILS % (AUTO) 87.7 % (40.0-77.0); NUCLEATED RED BLOOD CELLS 0.1 % (0.0-0.19); PLATELET COUNT (AUTO) 293 K/uL (130-400); RED BLOOD CELL COUNT(AUTO) 3.56 MIL/uL (4.00-5.50); WHITE BLOOD COUNT (AUTO) 20.1 K/uL (4.8-10.8)
[2019-10-21 04:29] LABS: ABG BASE EXCESS 19.2 mmol/L (-2.0-3.0); ABG HCO3 47.8 mmol/L (21.0-28.0); ABG OXYGEN SATURATION 87.1 % (95.0-99.0); ABG PCO2 71 mmHg (32-45)
[2019-10-21] MEDS: ARTIFICAL TEARS SOL 15 ML OU SCH ×4 (04:34→21:53)
[2019-10-21 04:50] LABS: ALBUMIN 2.6 g/dL (3.5-5.0); BILIRUBIN,TOTAL 0.4 mg/dL (0.2-1.0); CREATININE 0.5 mg/dL (0.5-1.5); MAGNESIUM 1.9 mg/dL (1.80-2.40); PHOSPHORUS 1.7 mg/dL (2.5-4.9); POTASSIUM 3.2 mmol/L (3.5-5.1); TOTAL PROTEIN, SERUM 6.3 g/dL (6.0-8.3)
[2019-10-21] MEDS: INSULIN HUMULIN R 100 UNIT/ML 3ML SQ SCH ×4 (06:00→18:00)
[2019-10-21] MEDS: POTASSIUM CHLORIDE 10% ELIXIR 20 MEQ/15 ML UDCUP PO PRN ×2 (06:45→12:13)
[2019-10-21] MEDS: FAMOTIDINE 20MG TAB 20 MG TAB PO SCH ×2 (08:21→21:27)
[2019-10-21] MEDS: LORATADINE 10 MG TABLET PO SCH ×2 (08:21→21:27)
[2019-10-21] MEDS: SERTRALINE HCL 50 MG TABLET PO SCH (08:21)
[2019-10-21] MEDS: ENOXAPARIN SODIUM 80 MG/0.8 ML SQ SCH ×2 (08:23→21:29)
[2019-10-21] MEDS: VANCOMYCIN 1.25 GM in SODIUM CHLORIDE 0.9% 250 ML IV SCH ×2 (09:00→21:30)
[2019-10-21] MEDS: CHLORHEXIDINE GLUCONATE 473 ML MOUTHWASH MM SCH ×2 (10:52→21:14)
[2019-10-22] VITALS (42 sets, daily range): BP systolic 102–195; BP diastolic 55–104
[2019-10-22] MEDS: FUROSEMIDE 10 MG/ML 2ML VIAL IV SCH ×2 (00:29→13:44)
[2019-10-22] MEDS: HYDROCORTISONE SOD SUCCINATE 100 MG/2 ML VIAL IV SCH ×2 (00:30→06:29)
[2019-10-22] MEDS: FENTANYL 2500MCG+NS 250ML 250 ML IV SCH ×2 (00:46→20:12)
[2019-10-22] MEDS: SODIUM CHLORIDE 45 ML SPRY NS SCH ×11 (02:10→20:14)
[2019-10-22] MEDS: ARTIFICAL TEARS SOL 15 ML OU SCH ×4 (04:09→20:14)
[2019-10-22 06:04] LABS: CREATININE 0.4 mg/dL (0.5-1.5); POTASSIUM 3.3 mmol/L (3.5-5.1)
[2019-10-22] MEDS: INSULIN HUMULIN R 100 UNIT/ML 3ML SQ SCH ×4 (06:31→18:00)
[2019-10-22] MEDS: FAMOTIDINE 20MG TAB 20 MG TAB PO SCH ×2 (08:52→20:13)
[2019-10-22] MEDS: ENOXAPARIN SODIUM 80 MG/0.8 ML SQ SCH ×2 (08:52→20:13)
[2019-10-22] MEDS: LORATADINE 10 MG TABLET PO SCH ×2 (08:52→20:13)
[2019-10-22] MEDS: SERTRALINE HCL 50 MG TABLET PO SCH (08:52)
[2019-10-22] MEDS: CHLORHEXIDINE GLUCONATE 473 ML MOUTHWASH MM SCH ×2 (08:53→20:13)
[2019-10-22] MEDS: VANCOMYCIN 1.25 GM in SODIUM CHLORIDE 0.9% 250 ML IV SCH ×2 (09:00→20:13)
[2019-10-22] MEDS: MIDAZOLAM 100MG-0.9% NS 100ML 100 ML IV SCH (20:12)
[2019-10-23] VITALS (58 sets, daily range): BP systolic 81–170; BP diastolic 52–105
[2019-10-23] MEDS: SODIUM CHLORIDE 45 ML SPRY NS SCH ×13 (00:15→22:30)
[2019-10-23] MEDS: FUROSEMIDE 10 MG/ML 2ML VIAL IV SCH ×2 (00:18→13:11)
--- NOTE | 2019-10-23 04:56 | NUR ---
PT PROGRESS PT VSS. NO SIGNIFICANT CHANGES OVERNIGHT. PT HAS COPIOUS BLOODY ORAL SECRETIONS. ORAL CARE DONE Q4HR. FULL BED BATH WITH LINEN CHANGE DONE. WILL CONTINUE TO MONITOR.
[2019-10-23] MEDS: ARTIFICAL TEARS SOL 15 ML OU SCH ×4 (05:07→20:44)
[2019-10-23] MEDS: INSULIN HUMULIN R 100 UNIT/ML 3ML SQ SCH ×4 (06:00→18:29)
[2019-10-23 08:51] LABS: CREATININE 0.4 mg/dL (0.5-1.5); POTASSIUM 3.1 mmol/L (3.5-5.1)
[2019-10-23] MEDS: VANCOMYCIN 1.25 GM in SODIUM CHLORIDE 0.9% 250 ML IV SCH (09:00)
[2019-10-23] MEDS: FAMOTIDINE 20MG TAB 20 MG TAB PO SCH ×2 (09:43→20:42)
[2019-10-23] MEDS: LORATADINE 10 MG TABLET PO SCH ×2 (09:43→20:42)
[2019-10-23] MEDS: MIDAZOLAM 100MG-0.9% NS 100ML 100 ML IV SCH ×2 (09:44→20:43)
[2019-10-23] MEDS: ENOXAPARIN SODIUM 80 MG/0.8 ML SQ SCH ×2 (09:44→20:43)
[2019-10-23] MEDS: FENTANYL 2500MCG+NS 250ML 250 ML IV SCH ×2 (09:44→20:43)
[2019-10-23] MEDS: CHLORHEXIDINE GLUCONATE 473 ML MOUTHWASH MM SCH ×2 (09:45→20:42)
[2019-10-23] MEDS: POTASSIUM CHLORIDE 10% ELIXIR 20 MEQ/15 ML UDCUP PO PRN ×2 (13:12→18:44)
--- NOTE | 2019-10-23 16:54 | NUR ---
RD FOLLOW UP Pt continues with Tube feeding Vital AF 1.2 at goal rate of 40mls as per EMR. Pt tolerating. Recurrent decreased serum potassium. Concern for sufficient protein. Recommend to consider increasing tube feeding rate to 50mls/hr. Pt with poor prognosis. RD to continue to monitor. Please notify as additional nutrition concerns arise. Thank you. Addendum: 10/23/19 at [address] RD FOLLOW UP Pt continues with Tube feeding Vital AF 1.2 at goal rate of 40mls as per EMR. Pt tolerating. Recurrent decreased serum potassium. Concern for sufficient protein. Recommend to consider increasing tube feeding rate to 50mls/hr. RN notified. Pt with poor prognosis. RD to continue to monitor. Please notify as additional nutrition concerns arise. Thank you.
--- NOTE | 2019-10-23 18:44 | NUR ---
PROGRESS NOTE Patient had uneventful shift. Potassium 3.1, replaced with potassium elixir x 2 doses, requires one more dose per protocol. Will continue to monitor.
[2019-10-24] VITALS (14 sets, daily range): BP systolic 102–150; BP diastolic 50–79
[2019-10-24] MEDS: FUROSEMIDE 10 MG/ML 2ML VIAL IV SCH ×2 (00:38→12:30)
[2019-10-24] MEDS: SODIUM CHLORIDE 45 ML SPRY NS SCH ×7 (01:59→22:16)
[2019-10-24 02:44] LABS: ABG BASE EXCESS 19.1 mmol/L (-2.0-3.0); ABG HCO3 48.3 mmol/L (21.0-28.0); ABG OXYGEN SATURATION 89.6 % (95.0-99.0); ABG PCO2 75 mmHg (32-45)
[2019-10-24] MEDS ORDERED: PROPOFOL 1000 MG/100 ML 100 ML IV ONE (03:56)
[2019-10-24] MEDS ORDERED: PROPOFOL 500 MG/ 50ML VIAL IV PRN (04:00)
[2019-10-24] MEDS: ARTIFICAL TEARS SOL 15 ML OU SCH ×4 (04:00→21:34)
[2019-10-24 05:17] LABS: BASOPHILS % (AUTO) 0.1 % (0.0-5.0); EOSINOPHILS % (AUTO) 1.4 % (0.0-8.0); HEMATOCRIT 32.2 % (36-48); MEAN CORPUSCULAR HEMOGLOBIN 29.7 pg (27.0-33.0); MEAN CORPUSCULAR HGB CONC 31.1 g/dL (32.0-36.0); MEAN CORPUSCULAR VOLUME 95.5 fL (79-99); MONOCYTES % (AUTO) 2.9 % (3.0-13.0); NEUTROPHILS % (AUTO) 87.9 % (40.0-77.0); NUCLEATED RED BLOOD CELLS 0.3 % (0.0-0.19); PLATELET COUNT (AUTO) 251 K/uL (130-400); RED BLOOD CELL COUNT(AUTO) 3.37 MIL/uL (4.00-5.50); RED CELL DISTRIBUTION WIDTH 17.9 % (11.0-15.5); WHITE BLOOD COUNT (AUTO) 14.2 K/uL (4.8-10.8)
[2019-10-24 05:30] LABS: ABG BASE EXCESS 20.3 mmol/L (-2.0-3.0); ABG HCO3 48.8 mmol/L (21.0-28.0); ABG OXYGEN SATURATION 92.6 % (95.0-99.0); ABG PCO2 70 mmHg (32-45)
[2019-10-24 05:45] LABS: ALBUMIN 2.2 g/dL (3.5-5.0); BILIRUBIN,TOTAL 0.4 mg/dL (0.2-1.0); CREATININE 0.4 mg/dL (0.5-1.5); MAGNESIUM 2.1 mg/dL (1.80-2.40); PHOSPHORUS 3.1 mg/dL (2.5-4.9); POTASSIUM 3.4 mmol/L (3.5-5.1); TOTAL PROTEIN, SERUM 5.9 g/dL (6.0-8.3)
[2019-10-24] MEDS: INSULIN HUMULIN R 100 UNIT/ML 3ML SQ SCH ×4 (06:00→18:00)
--- NOTE | 2019-10-24 06:54 | NUR ---
PT PROGRESS PT VSS UNTIL APPROX MN. PT HR ELEVATED AND SUSTAINED 130s TO 150s WITH SPO2 DECREASING TO 90% FROM A BASELINE OF 96%. PT MAXED ON FENTANYL AND VERSED. SPOKE WITH WET END TESTER ABOUT CHANGE IN PT. STAT CXR AND ABG ORDERED SHOWING NO SIGNIFICANT CHANGES FROM THE PREVIOUS DAYS. PT STARTED ON PROPOFOL TO MAINTAIN RASS OF -2. VENT SETTINGS CHANGED TO INCREASE PEEP TO 12 AND DECREASE RR TO 30. NEXT HOUR ABG SHOWED IMPROVEMENTS.
[2019-10-24] MEDS: SERTRALINE HCL 50 MG TABLET PO SCH (09:00)
[2019-10-24] MEDS: CHLORHEXIDINE GLUCONATE 473 ML MOUTHWASH MM SCH ×2 (09:00→21:33)
[2019-10-24] MEDS: FAMOTIDINE 20MG TAB 20 MG TAB PO SCH ×2 (09:00→21:37)
[2019-10-24] MEDS: LORATADINE 10 MG TABLET PO SCH ×2 (09:00→21:37)
[2019-10-24] MEDS: ENOXAPARIN SODIUM 80 MG/0.8 ML SQ SCH ×2 (09:00→21:38)
--- NOTE | 2019-10-24 20:00 | NUR ---
ASSESSMENT PT RESTING QUIETLY IN BED, INTUBATED, SEDATED WITH PROPOFOL, VERSED, FENTANYL INFUSING WITHOUT DIFFICULTY. LEFT LIP ABRASION NOTED WITH LARGE AMOUNT OF BLOODY FOUL SMELLING DRAINAGE NOTED. SPO2 DECREASES WITH TACTILE STIMULATION. OGT IN PLACE WITH NEPRO AT 40ML/H. 16 FR GORMAN CATHETER TO BEDSIDE DRAINAGE. ASSESSMENT COMPLETED, SEE FLOW SHEET.
[2019-10-24] MEDS: PROPOFOL 1000 MG/100 ML 100 ML IV SCH (21:31)
[2019-10-24] MEDS: FENTANYL 2500MCG+NS 250ML 250 ML IV SCH (21:32)
[2019-10-24] MEDS: MIDAZOLAM 100MG-0.9% NS 100ML 100 ML IV SCH (21:32)
[2019-10-24] MEDS: VANCOMYCIN 1.25 GM in SODIUM CHLORIDE 0.9% 250 ML IV SCH (21:35)
[2019-10-25] VITALS (19 sets, daily range): BP systolic 99–143; BP diastolic 46–77
[2019-10-25] MEDS: SODIUM CHLORIDE 45 ML SPRY NS SCH ×12 (00:44→22:19)
[2019-10-25] MEDS: FUROSEMIDE 10 MG/ML 2ML VIAL IV SCH ×2 (00:47→13:54)
[2019-10-25] MEDS: ARTIFICAL TEARS SOL 15 ML OU SCH ×4 (03:08→21:07)
[2019-10-25 03:38] LABS: BASOPHILS % (AUTO) 0.2 % (0.0-5.0); EOSINOPHILS % (AUTO) 1.1 % (0.0-8.0); HEMATOCRIT 32.8 % (36-48); LYMPHOCYTES % (AUTO) 5.9 % (21.0-51.0); MEAN CORPUSCULAR HGB CONC 31.1 g/dL (32.0-36.0); MEAN CORPUSCULAR VOLUME 96.5 fL (79-99); MONOCYTES % (AUTO) 2.1 % (3.0-13.0); NEUTROPHILS % (AUTO) 90.1 % (40.0-77.0); NUCLEATED RED BLOOD CELLS 0.1 % (0.0-0.19); PLATELET COUNT (AUTO) 306 K/uL (130-400); RED CELL DISTRIBUTION WIDTH 18.3 % (11.0-15.5); WHITE BLOOD COUNT (AUTO) 20.7 K/uL (4.8-10.8)
[2019-10-25 03:52] LABS: ALBUMIN 2.2 g/dL (3.5-5.0); BILIRUBIN,TOTAL 0.5 mg/dL (0.2-1.0); CREATININE 0.4 mg/dL (0.5-1.5); MAGNESIUM 1.8 mg/dL (1.80-2.40); PHOSPHORUS 3.4 mg/dL (2.5-4.9); POTASSIUM 3.2 mmol/L (3.5-5.1); TOTAL PROTEIN, SERUM 6.2 g/dL (6.0-8.3)
[2019-10-25 03:56] LABS: ABG BASE EXCESS 9.9 mmol/L (-2.0-3.0); ABG HCO3 37.8 mmol/L (21.0-28.0); ABG OXYGEN SATURATION 86.3 % (95.0-99.0); ABG PCO2 65 mmHg (32-45)
[2019-10-25] MEDS: POTASSIUM CHLORIDE 20MEQ/100ML 100 ML IV PRN ×5 (05:01→23:38)
[2019-10-25] MEDS: INSULIN HUMULIN R 100 UNIT/ML 3ML SQ SCH ×4 (05:59→18:00)
[2019-10-25] MEDS: FAMOTIDINE 20MG TAB 20 MG TAB PO SCH ×2 (10:09→21:03)
[2019-10-25] MEDS: ENOXAPARIN SODIUM 80 MG/0.8 ML SQ SCH ×2 (10:10→21:04)
[2019-10-25] MEDS: LORATADINE 10 MG TABLET PO SCH ×2 (10:11→21:03)
[2019-10-25] MEDS: CHLORHEXIDINE GLUCONATE 473 ML MOUTHWASH MM SCH ×2 (10:12→21:09)
[2019-10-25] MEDS: VANCOMYCIN 1.25 GM in SODIUM CHLORIDE 0.9% 250 ML IV SCH ×2 (10:14→21:02)
[2019-10-25] MEDS: FENTANYL 2500MCG+NS 250ML 250 ML IV SCH (13:51)
[2019-10-25] MEDS ORDERED: PHARMACY COMMUNICATION MISC SCH ×2 (15:45→16:30)
[2019-10-25] MEDS ORDERED: LIDOCAINE PF 2% 5ML ABBOJECT ONE (15:47)
[2019-10-25] MEDS ORDERED: ROCURONIUM 10MG/1ML SYR 10 MG/ML ML IV ONE (16:00)
[2019-10-25] MEDS ORDERED: ROCURONIUM BROMIDE IV SCH (16:30)
[2019-10-25] MEDS ORDERED: SODIUM CHLORIDE 0.9% IV SCH (16:30)
[2019-10-25] MEDS: MIDAZOLAM 100MG-0.9% NS 100ML 100 ML IV SCH (17:34)
[2019-10-25] MEDS: MAGNESIUM 2GM PREMIX 50ML 50 ML IV SCH (20:21)
[2019-10-25] MEDS: LACTULOSE 20 GM/30 ML UDCUP PO PRN (21:03)
[2019-10-25] MEDS: PROPOFOL 1000 MG/100 ML 100 ML IV SCH (21:06)
[2019-10-25 21:55] LABS: ABG BASE EXCESS 15.9 mmol/L (-2.0-3.0); ABG HCO3 46.6 mmol/L (21.0-28.0); ABG OXYGEN SATURATION 40.4 % (95.0-99.0); ABG PCO2 88 mmHg (32-45)
[2019-10-26] MEDS: INSULIN HUMULIN R 100 UNIT/ML 3ML SQ SCH
[2019-10-26] MEDS: SODIUM CHLORIDE 45 ML SPRY NS SCH ×2 (00:13→02:30)
[2019-10-26] MEDS: FUROSEMIDE 10 MG/ML 2ML VIAL IV SCH (00:13)
--- NOTE | 2019-10-26 00:20 | NUR ---
UP-DATE SEE VITAL SIGNS. ESHA CUELLO RN CHEMICAL RESEARCH ENGINEER MADE AWARE AWARE OF VITAL SIGNS. SPO2 50%-68%-74%-75%. ESHA MADE AWARE VENT SETTINGS:AC/30/100%/400/PEEP 8. ALSO MADE AWARE PT WAS COVID (+) AND IS CURRENTLY NEGATIVE. ESHA ALSO MADE AWARE OF PNEUMOTHORAX WITH CHEST TUBE PLACEMENT, CHEST TUBE NOTED TO BE TWISTED AND KINKED, DRESSING CHANGE DONE, ABG'S DONE AND CHEST DONE. SEE ORDERS
[2019-10-26 00:31] LABS: ABG BASE EXCESS 14.8 mmol/L (-2.0-3.0); ABG HCO3 44.7 mmol/L (21.0-28.0); ABG OXYGEN SATURATION 70.9 % (95.0-99.0); ABG PCO2 81 mmHg (32-45)
[2019-10-26] MEDS: POTASSIUM CHLORIDE 20MEQ/100ML 100 ML IV PRN (00:37)
--- NOTE | 2019-10-26 01:10 | NUR ---
PRONE PT PRONED PER ORDERS
--- NOTE | 2019-10-26 01:25 | NUR ---
FAMILY SPOKE WITH FAMILY SONS ODALYS AND ROYER RE: PT STATUS, CHANGES IN CONDITION AND CODE STATUS. FAMILY WANTS PT TO REMAIN A FULL CODE. CODE CALLED FOR PT WHILE I WAS ON THE PHONE WITH FAMILY. FAMILY MADE AWARE CODE CALLED.
[2019-10-26 01:45] LABS: ABG BASE EXCESS 6.2 mmol/L (-2.0-3.0); ABG HCO3 38.3 mmol/L (21.0-28.0); ABG OXYGEN SATURATION 34.9 % (95.0-99.0); ABG PCO2 123 mmHg (32-45)
[2019-10-26 01:55] LABS: BASOPHILS % (AUTO) 0.3 % (0.0-5.0); EOSINOPHILS % (AUTO) 0.4 % (0.0-8.0); HEMATOCRIT 30.4 % (36-48); LYMPHOCYTES % (AUTO) 26.4 % (21.0-51.0); MEAN CORPUSCULAR HEMOGLOBIN 29.7 pg (27.0-33.0); MEAN CORPUSCULAR HGB CONC 29.3 g/dL (32.0-36.0); MEAN CORPUSCULAR VOLUME 101.3 fL (79-99); MONOCYTES % (AUTO) 2.5 % (3.0-13.0); NUCLEATED RED BLOOD CELLS 0.6 % (0.0-0.19); PLATELET COUNT (AUTO) 294 K/uL (130-400); RED CELL DISTRIBUTION WIDTH 18.6 % (11.0-15.5)
[2019-10-26] MEDS ORDERED: DOPAMINE HCL 400 MG/D5%-WATER 250 ML IV PRN (02:00)
[2019-10-26 02:01] LABS: WHITE BLOOD COUNT (AUTO) 31.8 K/uL (4.8-10.8)
[2019-10-26] MEDS ORDERED: EPINEPHRINE 0.1 MG/ML 10 ML SYG ONE (02:14)
[2019-10-26 02:15] LABS: CREATININE 0.7 mg/dL (0.5-1.5); POTASSIUM 5.3 mmol/L (3.5-5.1)
[2019-10-26] MEDS ORDERED: EPINEPHRINE 1 MG/ML 30ML VIAL IJ ONE (02:15)
[2019-10-26] MEDS ORDERED: EPINEPHRINE 1 MG/ML AMPULE ONE (02:17)
[2019-10-26] MEDS ORDERED: SODIUM CHLORIDE 0.9% 250 ML IV ONE (02:18)
[2019-10-26] MEDS ORDERED: SODIUM BICARB 50MEQ 50ML VIAL ONE (02:24)
[2019-10-26 02:31] LABS: BAND NEUTROPHILS % (MANUAL) 6 % (0-2); LYMPHOCYTES % (MANUAL) 21 % (22-44); MAN.DIFF COMMENT-IMPRESSION MANUAL DIFFERENTIAL; MONOCYTES % (MANUAL) 1 % (2-9); PLATELET MORPHOLOGY COMMENT ADEQUATE; REACTIVE LYMPHOCYTES 2 % (0-0); SEGMENTED NEUTROPHILS % 70 % (40-70)
--- NOTE | 2019-10-26 03:00 | NUR ---
FAMILY PT MOVED TO PRIVATE ROOM. FAMILY AT BEDSIDE.
--- NOTE | 2019-10-26 04:00 | NUR ---
FAMILY AT 0215 FAMILY ON PHONE REQUESTING TO COME TO SEE PT. FAMILY MADE AWARE COVID RESTRICTIONS ARE STILL IN PLACE. SON ROYER STARTED YELLING WITH ADY. EXPLAINED RESTRICTIONS AGAIN. SONS ROYER AND ODALYS BOTH HERE WITH OTHERS. FAMILY STEEL LAYOUT WORKER AT BEDSIDE WITH FAMILY - TOTAL OF 10 PEOPLE.
--- NOTE | 2019-10-26 04:00 | NUR ---
CARE PROVIDED Addendum: 10/26/19 at 1351 by UNIQUE ZAVALETA RN RN CARE PROVIDED AT [id number]
--- NOTE | 2019-10-26 07:22 | NUR ---
CODE ENOC STUBBS CALLED. FAMILY AWARE. REFER TO CODE SHEET. Addendum: 10/26/19 at 1423 by UNIQUE ZAVALETA RN RN GLENDY STUBBS CALLED AT [phone]
== END 2019-10-26 02:36 | disposition expired | DRG 207 ==
LOC: EDH 11:47 → EDHIP 11:48 → 4BH 09-11 01:16 → EDHIP 09-11 01:39 → 4CH 09-12 06:36 → 2BH 09-12 19:50 → 2AH 09-14 16:42 → 2CV 10-11 16:27 → DAHIP 10-24 19:30
PROVIDERS: ADMIT Internal Medicine Critical Care Medicine; ATTEND Internal Medicine Critical Care Medicine
PROC: XW13325 Transfusion of Convalescent Plasma (Nonautologous) into Peripheral Vein, Percutaneous Approach, New Technology Group 5 (ICD-10-PCS; 2019-09-10)
PROC: XW033E5 Introduction of Remdesivir Anti-infective into Peripheral Vein, Percutaneous Approach, New Technology Group 5 (ICD-10-PCS; 2019-09-10)
PROC: 5A1955Z Respiratory Ventilation, Greater than 96 Consecutive Hours (ICD-10-PCS; principal; 2019-10-11)
PROC: 02HV33Z Insertion of Infusion Device into Superior Vena Cava, Percutaneous Approach (ICD-10-PCS; 2019-10-11)
PROC: 0BH17EZ Insertion of Endotracheal Airway into Trachea, Via Natural or Artificial Opening (ICD-10-PCS; 2019-10-11)
PROC: 5A09357 Assistance with Respiratory Ventilation, Less than 24 Consecutive Hours, Continuous Positive Airway Pressure (ICD-10-PCS; 2019-10-11)
PROC: 5A12012 Performance of Cardiac Output, Single, Manual (ICD-10-PCS; 2019-10-26)
PROC: 0WJ8XZZ Inspection of Chest Wall, External Approach (ICD-10-PCS; 2019-10-26)
PROC: 0W9930Z Drainage of Right Pleural Cavity with Drainage Device, Percutaneous Approach (ICD-10-PCS; 2019-10-26)
DX: U07.1 COVID-19 (principal); J12.89 Other viral pneumonia; G92 Toxic encephalopathy; J96.22 Acute and chronic respiratory failure with hypercapnia; J96.21 Acute and chronic respiratory failure with hypoxia; J15.9 Unspecified bacterial pneumonia; A41.89 Other specified sepsis; J93.83 Other pneumothorax; N39.0 Urinary tract infection, site not specified; Z99.11 Dependence on respirator [ventilator] status; R04.2 Hemoptysis; E03.9 Hypothyroidism, unspecified; B95.2 Enterococcus as the cause of diseases classified elsewhere; B95.7 Other staphylococcus as the cause of diseases classified elsewhere; E66.01 Morbid (severe) obesity due to excess calories; E78.5 Hyperlipidemia, unspecified; G47.33 Obstructive sleep apnea (adult) (pediatric); H91.90 Unspecified hearing loss, unspecified ear; I10 Essential (primary) hypertension; I46.9 Cardiac arrest, cause unspecified; Z51.5 Encounter for palliative care
CPT/HCPCS: 31500; 36415; 36430; 36600; 71045; 71275; 80048; 80053; 80061; 80076; 80202; 81001; 82435; 82550; 82728; 82803; 82947; 82948; 83605; 83615; 83735; 83874; 83880; 84100; 84132; 84145; 84295; 84443; 84484; 85018; 85025; 85027; 85378; 85384; 85610; 85730; 86140; 86850; 86900; 86901; 86927; 87040; 87070; 87071; 87076; 87077; 87088; 87186; 87205; 87804; 92950; 93005; 93306; 93356; 93970; 94002; 94003; 94660; 94760; A4344; A4606; C1751; C1894; C9113; G0378; J0171; J0456; J0696; J1100; J1650; J1720; J1815; J1940; J2001; J2060; J2250; J2370; J2405; J2704; J3010; J3370; J3475; J3480; J3486; J3490; J7030; J7040; J7050; P9017; P9045; P9046; P9047; Q9967; U0003